=== PATIENT | male | born 1955 | race Two or more races ===

== ENCOUNTER 2016-09-30 23:41 | Emergency (ER) | payer MEDICAID, OTHER ==
[~2016-09-30] VITALS: Ht 162.6 cm; Wt 77.1 kg
[2016-10-01 00:02] VITALS: BP 129/75
== END 2016-10-01 07:48 | disposition left against medical advice (07) ==
LOC: ER 23:41
DX: R10.9 Unspecified abdominal pain (principal); Z53.21 Procedure and treatment not carried out due to patient leaving prior to being seen by health care provider

== ENCOUNTER 2016-10-17 19:32 | Emergency (ER) | payer MEDICAID ==
[~2016-10-17] VITALS: Ht 172.7 cm; Wt 63.5 kg
[2016-10-18 05:45] VITALS: BP 110/69
== END 2016-10-18 06:05 | disposition home or self-care (01) ==
LOC: EDBD 19:32 → ER 19:40
DX: K42.9 Umbilical hernia without obstruction or gangrene (principal); K80.20 Calculus of gallbladder without cholecystitis without obstruction
CPT/HCPCS: 74176

== ENCOUNTER 2016-11-12 18:51 | Emergency (ER) | payer MEDICAID ==
[~2016-11-12] VITALS: Ht 165.1 cm; Wt 68.0 kg
[2016-11-12 20:32] LABS: Basophils # (auto) 0.1 uL; Basophils % (auto) 1.2 % (0.0-2.0); DEFINITIVE VIEW TRANSMISSION; Eosinophils # (auto) 0.1 uL; Eosinophils % (auto) 2.1 % (0.0-7.0); Hematocrit 27.3 % (41.0-53.0); Hemoglobin 8.9 g/dL (13.5-17.5); Mean Corpuscular Hemoglobin 23.3 pg (28.0-32.0); Mean Corpuscular Hgb Conc. 32.4 g/dL (32.0-36.0); Mean Corpuscular Volume 71.8 fL (80.0-100.0); Monocytes # (auto) 0.3 uL; Monocytes % (auto) 7.1 % (0.0-12.0); Neutrophils % (auto) 67.6 % (37.0-80.0); Platelet Count (auto) 184 10^3/uL (140-450); White Blood Cell 4.4 10^3/uL (4.4-10.8)
[2016-11-12 20:54] LABS: Red Cell Distribution Width 20.5 % (11.6-16.0)
[2016-11-12 20:56] LABS: Albumin 3.4 g/dL (3.4-5.0); Calcium 7.7 mg/dL (8.5-10.1); Magnesium 2.2 mg/dL (1.6-2.6)
[2016-11-12 20:59] LABS: Bilirubin, Total 0.6 mg/dL (0.2-1.0); Total Protein 7.8 g/dL (6.4-8.2)
[2016-11-12 21:07] LABS: Ovalocytes FEW
[2016-11-12 21:08] LABS: Hypochromia Moderate
[2016-11-12 21:09] LABS: Anisocytosis Moderate
[2016-11-12 21:12] LABS: Large Platelets FEW; Platelet Estimate Adequa
[2016-11-12 23:33] LABS: Urine Bilirubin Negative (Negative); Urine Color Yellow (Yellow); Urine Glucose Normal (Normal); Urine Ketone Negative (Negative); Urine Mucus FEW (None Seen); Urine Nitrite Negative (Negative); Urine RBC <1 /hpf (0 - 3); Urine Urobilinogen Normal (Negative)
[2016-11-12 23:37] LABS: Urine Blood 1+ /uL (Negative)
[2016-11-13] MEDS ORDERED: ONDANSETRON HCL 4 MG/2 ML VIAL IV ONE (00:30)
[2016-11-13] MEDS ORDERED: MORPHINE SULFATE 4 MG/ML SYRG IV ONE (00:30)
[2016-11-13 01:47] VITALS: BP 115/67
== END 2016-11-13 01:57 | disposition home or self-care (01) ==
LOC: ER 18:56
DX: K42.9 Umbilical hernia without obstruction or gangrene (principal); K80.20 Calculus of gallbladder without cholecystitis without obstruction; Z59.0 Homelessness
CPT/HCPCS: 36415; 74176; 80053; 81001; 82150; 83690; 83735; 85025; 96374; 96375; 99285; J2270; J2405

== ENCOUNTER 2016-12-12 20:10 | Emergency (ER) | payer MEDICAID ==
[~2016-12-12] VITALS: Ht 167.6 cm; Wt 63.5 kg
[2016-12-13 00:46] LABS: Basophils # (auto) 0 uL; DEFINITIVE VIEW TRANSMISSION; Eosinophils # (auto) 0.1 uL; Eosinophils % (auto) 3.7 % (0.0-7.0); Hematocrit 26.3 % (41.0-53.0); Hemoglobin 8.4 g/dL (13.5-17.5); Lymphocytes % (auto) 31.3 % (10.0-50.0); Mean Corpuscular Hemoglobin 23.2 pg (28.0-32.0); Mean Corpuscular Volume 72.6 fL (80.0-100.0); Monocytes # (auto) 0.3 uL; Monocytes % (auto) 8.3 % (0.0-12.0); Neutrophils # (auto) 1.8 uL; Neutrophils % (auto) 55.7 % (37.0-80.0); Platelet Count (auto) 142 10^3/uL (140-450); White Blood Cell 3.2 10^3/uL (4.4-10.8)
[2016-12-13 03:04] VITALS: BP 108/68
[2016-12-13 03:13] LABS: Albumin 3.3 g/dL (3.4-5.0); BUN/Creatinine Ratio 13.5; Bilirubin, Total 0.5 mg/dL (0.2-1.0); Calcium 8.1 mg/dL (8.5-10.1); Potassium 3.7 mmol/L (3.5-5.1); Total Protein 7.4 g/dL (6.4-8.2)
[2016-12-13 03:52] LABS: INR 1.13 (0.9-1.15); Partial Thromboplastin Time 26.5 sec (22.64-33.71); Prothrombin Time 12.2 sec (9.37-12.3)
[2016-12-13 05:06] LABS: Red Cell Distribution Width 20.5 % (11.6-16.0)
[2016-12-13 06:04] LABS: Platelet Estimate Adequate
[2016-12-13 06:06] LABS: Anisocytosis Moderate; Hypochromia Moderate
[2016-12-13 06:07] LABS: Ovalocytes FEW
== END 2016-12-13 03:45 | disposition home or self-care (01) ==
LOC: EDBD 20:10 → ER 20:22
DX: K42.9 Umbilical hernia without obstruction or gangrene (principal); K74.60 Unspecified cirrhosis of liver
CPT/HCPCS: 36415; 74176; 80053; 82150; 83690; 85025; 85610; 85730

== ENCOUNTER 2017-03-02 21:53 | Observation (INO) | payer MEDICAID ==
[~2017-03-02] VITALS: Ht 175.3 cm; Wt 74.8 kg
[~2017-03-02 21:53] MED LIST: FAMO-12 PO; FOLI1TAB6 PO
[2017-03-03] MEDS ORDERED: THIAMINE HCL 100 MG/ML 2ML VIAL IV ONE (05:15)
[2017-03-03] MEDS ORDERED: SODIUM CHLORIDE 0.9% 1,000 ML IV ONE ×2 (05:15→07:15)
[2017-03-03 05:54] LABS: Basophils # (auto) 0 uL; CONDITION Y; DEFINITIVE SEE PRINTOUT; Eosinophils # (auto) 0.1 uL; Eosinophils % (auto) 2.3 % (0.0-7.0); Hematocrit 27.4 % (41.0-53.0); Lymphocytes # (auto) 1.1 uL; Lymphocytes % (auto) 32.7 % (10.0-50.0); Mean Corpuscular Hemoglobin 24.5 pg (28.0-32.0); Mean Corpuscular Hgb Conc. 32.9 g/dL (32.0-36.0); Mean Corpuscular Volume 74.5 fL (80.0-100.0); Monocytes # (auto) 0.3 uL; Monocytes % (auto) 8.2 % (0.0-12.0); Neutrophils # (auto) 1.8 uL; Neutrophils % (auto) 55.8 % (37.0-80.0); Platelet Count (auto) 134 10^3/uL (140-450); White Blood Cell 3.3 10^3/uL (4.4-10.8)
[2017-03-03 05:56] LABS: Red Cell Distribution Width 22.1 % (11.6-16.0)
[2017-03-03 06:08] LABS: Urine Bilirubin Negative (Negative); Urine Blood TRACE /uL (Negative); Urine Color Yellow (Yellow); Urine Glucose Normal (Normal); Urine Ketone Negative (Negative); Urine Nitrite Negative (Negative); Urine RBC 1 /hpf (0 - 3); Urine Urobilinogen Normal (Negative)
[2017-03-03 06:21] LABS: Salicylate < 1.7 mg/dL (2.8-20.0)
[2017-03-03 06:28] LABS: Acetaminophen < 2.0 ug/mL (10-30)
[2017-03-03 06:31] LABS: Albumin 3.2 g/dL (3.4-5.0); BUN/Creatinine Ratio 10.9; Bilirubin, Total 0.5 mg/dL (0.2-1.0); Calcium 7.7 mg/dL (8.5-10.1); Magnesium 2.1 mg/dL (1.6-2.6); Potassium 3.4 mmol/L (3.5-5.1); Total Protein 7.3 g/dL (6.4-8.2)
[2017-03-03 06:46] LABS: Anisocytosis Slight; Ovalocytes FEW; Platelet Estimate Decreased
[2017-03-03 06:47] LABS: Hypochromia Slight; Microcytosis Moderate
[2017-03-03 07:34] VITALS: BP 117/68
== END 2017-03-03 09:34 | disposition home or self-care (01) | DRG 775 ==
LOC: ER 21:59 → OVERFLOW 22:00 → ER 03-03 09:34
PROVIDERS: ADMIT Emergency Medicine; ATTEND Emergency Medicine
DX: F10.10 Alcohol abuse, uncomplicated (principal); K74.60 Unspecified cirrhosis of liver
CPT/HCPCS: 36415; 80053; 80307; 80320; 80329; 81001; 83735; 85025; 96361; 96374; 99285; G0378; J3411; J7030

== ENCOUNTER 2017-12-25 19:19 | Inpatient (IN) | payer MEDICAID ==
[~2017-12-25] VITALS: Ht 167.6 cm; Wt 65.8 kg
[2017-12-25 20:08] LABS: Basophils # (auto) 0.1 uL; Eosinophils # (auto) 0.1 uL; Hemoglobin 11.1 g/dL (13.5-17.5); Monocytes # (auto) 0.6 uL; Monocytes % (auto) 8.4 % (0.0-12.0); Neutrophils # (auto) 4.7 uL; White Blood Cell 6.8 10^3/uL (4.4-10.8)
[2017-12-25 20:13] LABS: Basophils % (auto) 0.9 % (0.0-2.0); Eosinophils % (auto) 1.6 % (0.0-7.0); Hematocrit 32.8 % (41.0-53.0); Lymphocytes # (auto) 1.3 uL; Lymphocytes % (auto) 19.3 % (10.0-50.0); Mean Corpuscular Hemoglobin 26.1 pg (28.0-32.0); Mean Corpuscular Hgb Conc. 33.7 g/dL (32.0-36.0); Mean Corpuscular Volume 77.4 fL (80.0-100.0); Neutrophils % (auto) 69.8 % (37.0-80.0); Nucleated Red Blood Cells % 0.2 %; Platelet Count (auto) 189 10^3/uL (140-450); Red Blood Cells 4.24 10^6/uL (4.5-5.90); Red Cell Distribution Width 18.4 % (11.8-14.3)
[2017-12-25 20:27] LABS: INR 1.06 (0.9-1.15); Partial Thromboplastin Time 27.8 sec (22.64-33.71); Prothrombin Time 11.6 sec (9.37-12.3)
[2017-12-25 20:28] LABS: Albumin 2.7 g/dL (3.4-5.0); BUN/Creatinine Ratio 6.9; Calcium 7.4 mg/dL (8.5-10.1); Potassium 3.2 mmol/L (3.5-5.1); Total Protein 6.9 g/dL (6.4-8.2)
[2017-12-25] MEDS ORDERED: SODIUM CHLORIDE 0.9% 1,000 ML IV ONE (20:58)
[2017-12-26] VITALS (7 sets, daily range): BP systolic 96–117; BP diastolic 58–75
[2017-12-26] MEDS ORDERED: MORPHINE SULFATE 4 MG/ML SYR/VIAL IV PRN (03:00)
[2017-12-26] MEDS ORDERED: FUROSEMIDE 20 MG/2 ML VIAL IV ONE (03:00)
[2017-12-26] MEDS ORDERED: ONDANSETRON HCL 4 MG/2 ML VIAL IV PRN (03:00)
[2017-12-26] MEDS ORDERED: POTASSIUM CHL 20 Meq TABLET PO ONE (03:00)
[2017-12-26] MEDS ORDERED: chlordiazePOXIDE HCL 25 MG CAP PO PRN (03:00)
[2017-12-26] MEDS ORDERED: LORazepam 2MG/ML-1ML VIAL IV PRN (03:00)
[2017-12-26 06:49] LABS: Basophils # (auto) 0 uL; Hemoglobin 10.9 g/dL (13.5-17.5); Mean Corpuscular Volume 77.5 fL (80.0-100.0); Monocytes # (auto) 0.3 uL; Platelet Count (auto) 146 10^3/uL (140-450)
[2017-12-26 06:53] LABS: Basophils % (auto) 0.7 % (0.0-2.0); Eosinophils # (auto) 0.1 uL; Eosinophils % (auto) 1.6 % (0.0-7.0); Lymphocytes # (auto) 0.7 uL; Lymphocytes % (auto) 18.6 % (10.0-50.0); Mean Corpuscular Hemoglobin 26.4 pg (28.0-32.0); Mean Corpuscular Hgb Conc. 34.1 g/dL (32.0-36.0); Monocytes % (auto) 8.7 % (0.0-12.0); Neutrophils # (auto) 2.7 uL; Neutrophils % (auto) 70.4 % (37.0-80.0); Nucleated Red Blood Cells % 0.5 %; Red Blood Cells 4.13 10^6/uL (4.5-5.90); Red Cell Distribution Width 17.8 % (11.8-14.3); White Blood Cell 3.8 10^3/uL (4.4-10.8)
[2017-12-26 07:06] LABS: Albumin 2.5 g/dL (3.4-5.0); Calcium 7.3 mg/dL (8.5-10.1); Potassium 3.5 mmol/L (3.5-5.1)
[2017-12-26 07:09] LABS: BUN/Creatinine Ratio 8.2
[2017-12-26 07:12] LABS: Total Protein 6.3 g/dL (6.4-8.2)
[2017-12-26] MEDS: THIAMINE 100mg/ml INJ (200mg/2ml VIAL) IV SCH (10:00)
[2017-12-26] MEDS: FOLIC ACID 1 MG TAB PO SCH (10:00)
[2017-12-26] MEDS: LACTULOSE 20Gm/30ML SOLN PO SCH ×2 (10:00→21:33)
[2017-12-26] MEDS: ALBUMIN 25% 100 ML IV SCH ×2 (13:07→18:15)
[2017-12-27] MEDS: ALBUMIN 25% 100 ML IV SCH (02:46)
[2017-12-27 05:00] VITALS: BP 96/62
[2017-12-27 06:18] LABS: Basophils # (auto) 0 uL; Basophils % (auto) 0.6 % (0.0-2.0); Eosinophils # (auto) 0 uL; Hematocrit 28.3 % (41.0-53.0); Hemoglobin 9.7 g/dL (13.5-17.5); Lymphocytes # (auto) 0.5 uL; Monocytes # (auto) 0.3 uL; Neutrophils # (auto) 1.3 uL; Platelet Count (auto) 90 10^3/uL (140-450)
[2017-12-27 06:22] LABS: Eosinophils % (auto) 1.7 % (0.0-7.0); Lymphocytes % (auto) 22.9 % (10.0-50.0); Mean Corpuscular Hemoglobin 26.7 pg (28.0-32.0); Mean Corpuscular Hgb Conc. 34.3 g/dL (32.0-36.0); Monocytes % (auto) 12.8 % (0.0-12.0); Red Blood Cells 3.62 10^6/uL (4.5-5.90); Red Cell Distribution Width 18.7 % (11.8-14.3); White Blood Cell 2.1 10^3/uL (4.4-10.8)
[2017-12-27 06:42] LABS: BUN/Creatinine Ratio 16.4; Bilirubin, Direct 0.5 mg/dL (0-0.2); Bilirubin, Total 1.6 mg/dL (0.2-1.0); Calcium 7.6 mg/dL (8.5-10.1); Magnesium 1.8 mg/dL (1.6-2.6); Potassium 3.5 mmol/L (3.5-5.1); Total Protein 5.5 g/dL (6.4-8.2)
[2017-12-27 09:00] VITALS: BP 92/51
[2017-12-27] MEDS: FOLIC ACID 1 MG TAB PO SCH (09:35)
[2017-12-27] MEDS: THIAMINE 100mg/ml INJ (200mg/2ml VIAL) IV SCH (09:35)
[2017-12-27] MEDS: LACTULOSE 20Gm/30ML SOLN PO SCH (09:35)
[2017-12-27 13:00] VITALS: BP 99/64
[2017-12-27 15:29] VITALS: BP 107/65
== END 2017-12-27 16:30 | disposition home or self-care (01) | DRG 280 ==
LOC: ER 19:19 → TELE 19:20 → TELE-WESTW 12-26 01:14 → ER 12-26 01:25 → TELE-WESTW 12-26 01:30
PROVIDERS: ADMIT Nurse Practitioner Family; ATTEND Internal Medicine
PROC: 0W9G3ZZ Drainage of Peritoneal Cavity, Percutaneous Approach (ICD-10-PCS; principal; 2017-12-26)
DX: K70.31 Alcoholic cirrhosis of liver with ascites (principal); D61.818 Other pancytopenia; K76.6 Portal hypertension; E44.0 Moderate protein-calorie malnutrition; E87.1 Hypo-osmolality and hyponatremia; E83.51 Hypocalcemia; R79.89 Other specified abnormal findings of blood chemistry; E87.6 Hypokalemia; K80.20 Calculus of gallbladder without cholecystitis without obstruction; F10.10 Alcohol abuse, uncomplicated; I25.10 Atherosclerotic heart disease of native coronary artery without angina pectoris; Z79.899 Other long term (current) drug therapy; Z68.23 Body mass index [BMI] 23.0-23.9, adult
CPT/HCPCS: 10022; 36415; 74176; 76705; 76942; 80048; 80053; 80076; 82105; 82140; 82150; 82378; 83690; 83735; 83880; 84484; 85025; 85610; 85730; 87081; 93005; C1729; P9047

== ENCOUNTER 2017-12-28 20:50 | Emergency (ER) | payer MEDICAID ==
[~2017-12-28] VITALS: Ht 182.9 cm; Wt 81.6 kg
[2017-12-28 21:51] LABS: Basophils # (auto) 0 uL; Eosinophils # (auto) 0.1 uL; Hemoglobin 10.6 g/dL (13.5-17.5); Mean Corpuscular Hemoglobin 26.6 pg (28.0-32.0); Monocytes # (auto) 0.3 uL; Monocytes % (auto) 7.2 % (0.0-12.0); Nucleated Red Blood Cells % 0.1 %
[2017-12-28 21:53] LABS: Basophils % (auto) 0.5 % (0.0-2.0); Eosinophils % (auto) 1.7 % (0.0-7.0); Hematocrit 31.8 % (41.0-53.0); Lymphocytes % (auto) 24.3 % (10.0-50.0); Mean Corpuscular Hgb Conc. 33.4 g/dL (32.0-36.0); Mean Corpuscular Volume 79.5 fL (80.0-100.0); Neutrophils # (auto) 2.9 uL; Neutrophils % (auto) 66.3 % (37.0-80.0); Red Cell Distribution Width 19.1 % (11.8-14.3); White Blood Cell 4.3 10^3/uL (4.4-10.8)
[2017-12-28 21:59] LABS: Albumin 2.7 g/dL (3.4-5.0); Calcium 7.4 mg/dL (8.5-10.1); Potassium 3.5 mmol/L (3.5-5.1)
[2017-12-28 22:02] LABS: Bilirubin, Total 0.6 mg/dL (0.2-1.0); Total Protein 6.2 g/dL (6.4-8.2)
[2017-12-28 22:04] LABS: Platelet Count (auto) 115 10^3/uL (140-450)
[2017-12-28] MEDS ORDERED: THIAMINE INJ 100 MG, MULTIPLE VITAMIN 10 ML, FOLIC ACID 1 MG, MAGNESIUM SULF SDV 50% 8 ... IV STA ×5 (23:00)
[2017-12-28] MEDS ORDERED: THIAMINE 100mg/ml INJ (200mg/2ml VIAL) ONE (23:58)
[2017-12-29 03:20] VITALS: BP 98/55
== END 2017-12-29 03:33 | disposition home or self-care (01) ==
LOC: EDBD 20:50 → ER 20:58
DX: K80.20 Calculus of gallbladder without cholecystitis without obstruction (principal); G92 Toxic encephalopathy; K42.9 Umbilical hernia without obstruction or gangrene; K70.31 Alcoholic cirrhosis of liver with ascites; F10.129 Alcohol abuse with intoxication, unspecified; Z59.0 Homelessness; Z79.899 Other long term (current) drug therapy
CPT/HCPCS: 36415; 74176; 80053; 80320; 82140; 82150; 83690; 85025; 93005; 96365; 96366; 99285; J3411; J3475; J7030

== ENCOUNTER 2018-01-30 22:23 | Emergency (ER) | payer MEDICAID ==
[~2018-01-30] VITALS: Ht 167.6 cm; Wt 59.0 kg
[2018-01-31 00:34] LABS: Basophils # (auto) 0 uL; Basophils % (auto) 1.2 % (0.0-2.0); Eosinophils # (auto) 0.1 uL; Eosinophils % (auto) 2.6 % (0.0-7.0); Hematocrit 30.4 % (41.0-53.0); Hemoglobin 10.4 g/dL (13.5-17.5); Lymphocytes # (auto) 0.9 uL; Lymphocytes % (auto) 24.8 % (10.0-50.0); Mean Corpuscular Hemoglobin 27.2 pg (28.0-32.0); Mean Corpuscular Hgb Conc. 34.3 g/dL (32.0-36.0); Mean Corpuscular Volume 79.2 fL (80.0-100.0); Monocytes # (auto) 0.3 uL; Monocytes % (auto) 9.3 % (0.0-12.0); Neutrophils # (auto) 2.3 uL; Neutrophils % (auto) 62.1 % (37.0-80.0); Nucleated Red Blood Cells % 0.1 %; Platelet Count (auto) 123 10^3/uL (140-450); Red Blood Cells 3.83 10^6/uL (4.5-5.90); Red Cell Distribution Width 21.1 % (11.8-14.3); White Blood Cell 3.7 10^3/uL (4.4-10.8)
[2018-01-31 00:49] LABS: Albumin 2.6 g/dL (3.4-5.0); Calcium 7.2 mg/dL (8.5-10.1); Magnesium 1.9 mg/dL (1.6-2.6)
[2018-01-31 00:52] LABS: Bilirubin, Total 1.2 mg/dL (0.2-1.0); Total Protein 6.6 g/dL (6.4-8.2)
[2018-01-31 02:27] LABS: Urine Bacteria NONE SEEN /hpf (None Seen); Urine Blood Negative /uL (Negative); Urine Specific Gravity 1.002 (1.001-1.035); Urine WBC <1 /hpf (0 - 3)
[2018-01-31] MEDS ORDERED: SODIUM CHLORIDE 0.9% 1,000 ML IV ONE (07:45)
[2018-01-31 09:38] VITALS: BP 115/59
== END 2018-01-31 09:30 | disposition home or self-care (01) ==
LOC: EDBD 22:23 → ER 22:33
DX: F10.10 Alcohol abuse, uncomplicated (principal)
CPT/HCPCS: 36415; 80053; 81001; 83735; 85025; 99285; J7030

== ENCOUNTER 2018-12-30 16:09 | Emergency (ER) | payer MEDICAID ==
[~2018-12-30] VITALS: Ht 172.7 cm; Wt 83.5 kg
[~2018-12-30 16:09] MED LIST changes: +FAM20T PO; -FAMO-12 PO; +SPIR25TA88 PO; +THIA100T10 PO
[2018-12-30 18:06] LABS: Basophils # (auto) 0 uL; Basophils % (auto) 0.5 % (0.0-2.0); Eosinophils # (auto) 0.1 uL; Eosinophils % (auto) 1.2 % (0.0-7.0); Hematocrit 31.5 % (41.0-53.0); Hemoglobin 10.6 g/dL (13.5-17.5); Lymphocytes # (auto) 0.5 uL; Lymphocytes % (auto) 12.1 % (10.0-50.0); Mean Corpuscular Hemoglobin 28.7 pg (28.0-32.0); Mean Corpuscular Hgb Conc. 33.6 g/dL (32.0-36.0); Mean Corpuscular Volume 85.4 fL (80.0-100.0); Monocytes # (auto) 0.4 uL; Monocytes % (auto) 9.1 % (0.0-12.0); Neutrophils # (auto) 3.5 uL; Neutrophils % (auto) 77.1 % (37.0-80.0); Platelet Count (auto) 168 10^3/uL (140-450); Red Blood Cells 3.69 10^6/uL (4.5-5.90); Red Cell Distribution Width 17.9 % (11.8-14.3); White Blood Cell 4.5 10^3/uL (4.4-10.8)
[2018-12-30 18:10] LABS: Albumin 2.9 g/dL (3.4-5.0); BUN/Creatinine Ratio 12.7; Calcium 8.1 mg/dL (8.5-10.1)
[2018-12-30 18:12] LABS: Bilirubin, Total 1.8 mg/dL (0.2-1.0)
[2018-12-30 18:58] LABS: INR 1.06 (0.9-1.15); Partial Thromboplastin Time 27.3 sec (23.64-32.05)
[2018-12-30] MEDS ORDERED: ALBUMIN 25% 100 ML IV ONE (22:30)
[2018-12-30] MEDS ORDERED: ALBUMIN 5% 50 ML IV ONE (22:45)
[2018-12-30 23:29] VITALS: BP 103/61
== END 2018-12-31 00:41 | disposition home or self-care (01) ==
LOC: ER 16:13
DX: R18.8 Other ascites (principal); K74.60 Unspecified cirrhosis of liver; E43 Unspecified severe protein-calorie malnutrition; D64.9 Anemia, unspecified; E87.1 Hypo-osmolality and hyponatremia; Z68.28 Body mass index [BMI] 28.0-28.9, adult
CPT/HCPCS: 36415; 49083; 80053; 85025; 85610; 85730; 87205; 89051; 96365; 99285; P9041; P9047; 10022

== ENCOUNTER 2019-04-16 21:00 | Inpatient (IN) | payer MEDICAID ==
[~2019-04-16] VITALS: Ht 167.6 cm; Wt 62.6 kg
[2019-04-16 22:32] LABS: Basophils # (auto) 0 uL; Basophils % (auto) 0.9 % (0.0-2.0); Eosinophils # (auto) 0.1 uL; Eosinophils % (auto) 2.2 % (0.0-7.0); Hematocrit 28.4 % (41.0-53.0); Lymphocytes # (auto) 0.4 uL; Lymphocytes % (auto) 13.3 % (10.0-50.0); Mean Corpuscular Hemoglobin 29.6 pg (28.0-32.0); Mean Corpuscular Hgb Conc. 35.1 g/dL (32.0-36.0); Mean Corpuscular Volume 84.2 fL (80.0-100.0); Monocytes # (auto) 0.3 uL; Monocytes % (auto) 10.2 % (0.0-12.0); Neutrophils # (auto) 2.3 uL; Neutrophils % (auto) 73.4 % (37.0-80.0); Nucleated Red Blood Cells % 0.1 %; Platelet Count (auto) 157 10^3/uL (140-450); Red Blood Cells 3.37 10^6/uL (4.5-5.90); Red Cell Distribution Width 17.3 % (11.8-14.3); White Blood Cell 3.2 10^3/uL (4.4-10.8)
[2019-04-16 22:46] LABS: Albumin 2.7 g/dL (3.4-5.0); Amylase 61 U/L (25-115); Anion Gap 11 (5-15); Blood Urea Nitrogen 18 mg/dL (7-18); Calcium 7.6 mg/dL (8.5-10.1); Carbon Dioxide 21 mmol/L (21-32); Chloride 93 mmol/L (98-107); Glucose 85 mg/dL (74-106); Lipase 143 U/L (73-393); Magnesium 1.9 mg/dL (1.6-2.6); Potassium 3.7 mmol/L (3.5-5.1); Sodium 125 mmol/L (136-145)
[2019-04-16 22:48] LABS: BUN/Creatinine Ratio 22.5; GFR African American 126 mL/min; GFR Non-African American 104 mL/min
[2019-04-16] MEDS ORDERED: HETASTARCH 500 ML IV ONE (23:00)
[2019-04-16 23:05] LABS: Alanine Aminotransferase 21 U/L (16-61); Alkaline Phosphatase 83 U/L (45-117); Aspartate Aminotransferase 35 U/L (15-37); Bilirubin, Total 1.6 mg/dL (0.2-1.0); Total Protein 6.4 g/dL (6.4-8.2)
[2019-04-16] MEDS ORDERED: LACTULOSE 20Gm/30ML SOLN PO ONE (23:30)
[2019-04-16] MEDS ORDERED: SPIRONOLACTONE 25 MG TAB PO ONE (23:45)
[2019-04-17] MEDS ORDERED: SODIUM CHL 3% 500 ML IV ONE (01:00)
[2019-04-17] MEDS ORDERED: ONDANSETRON HCL 4 MG/2 ML VIAL IV PRN (03:15)
[2019-04-17] MEDS ORDERED: TEMAZEPAM 15 MG CAP PO PRN (03:15)
[2019-04-17] MEDS ORDERED: NITROGLYCERIN 0.4 MG SL TAB SL PRN (03:15)
[2019-04-17] MEDS ORDERED: MORPHINE SULF INJ 2 MG/ML SYRINGE 1ML IV PRN (03:15)
[2019-04-17 03:30] LABS: Urine Bacteria NONE SEEN /hpf (None Seen); Urine Blood 2+ /uL (Negative); Urine Specific Gravity 1.018 (1.001-1.035); Urine WBC 1 /hpf (0 - 3)
--- NOTE | 2019-04-17 05:00 | NUR ---
MS admit from ER LYNN,KEN admitted to MS after SBAR received, from ED RN Samina. Patient oriented to ALF CHOI,primary RN, unit, room, bed, and unit policies regarding patient care and visiting hours. Patient weighed by bedscale and encouraged to call if they need something. All questions and concerns addressed, patient verbalized understanding.
--- NOTE | 2019-04-17 05:20 | NUR ---
WOUND NOTED WOUND NOTED POSTERIOR NECK. WOUND PHOTO TAKEN AND DOCUMENTED. WOUND CLEANSED WITH NORMAL SALINE AND NON ADHERENT OPTIFOAM APPLIED. NO DRAINAGE NOTED.
[2019-04-17] MEDS: SPIRONOLACTONE 25 MG TAB PO SCH ×2 (05:34→18:16)
[2019-04-17 06:06] VITALS: BP 117/77
--- NOTE | 2019-04-17 07:15 | NUR ---
ENDORSED CARE TO DONNY MYERS
--- NOTE | 2019-04-17 07:30 | NUR ---
Opening Shift Note Assumed care of patient, awake and alert. No S/S of distress/SOB or pain. Instructed on POC and to call for assist PRN, will continue to monitor for changes Q1hr and PRN.
[2019-04-17 08:35] VITALS: BP 119/76
[2019-04-17] MEDS: LACTULOSE 20Gm/30ML SOLN PO SCH ×2 (10:00→10:12)
[2019-04-17 10:09] LABS: INR 1.05 (0.9-1.15)
[2019-04-17] MEDS: THIAMINE HCL 100 MG TAB PO SCH (10:12)
[2019-04-17] MEDS: FAMOTIDINE 20 MG TAB PO SCH ×2 (10:13→22:13)
[2019-04-17] MEDS: FOLIC ACID 1 MG TAB PO SCH (10:14)
--- NOTE | 2019-04-17 11:30 | NUR ---
WOUNDCARE AT BEDSIDE
--- NOTE | 2019-04-17 11:52 | NUR ---
WOUND CARE NOTE: Wound care in to see patient per wound care request regarding " posterior neck wound" that are noted present on admission. Bedside nurse took photograph of patient's wound upon admission for reference. Patient is 63 y/o male with admitting diagnosis of Abdominal Distention secondary to ascites. Patient with history of Liver Cirrhosis and COPD. Patient is resting in bed in Rm. 216B. Patient is awake,alert and oriented. He's in no stated pain at this time. Patient is ambulatory and self turn and reposition. His Bao score is 19. Noted patient's distal posterior neck has 2.5x1 cm reddened area with open lesion at center measuring 0.7x0.5cm no measurable depth. Wound with yellow slough, luis wound is bright red, scant drainage noted, no odor noted. Patient denies any trauma to site and states that he just noted a pimple like lesion about a week ago when it "popped" and drain "brown stuff". Cleanse wound with NS, patted dry with gauze, applied Thera honey gel and covered with Opti foam gentle dressing. Patient tolerated well, no other wound noted. Nursing to continue dressing change per MD order, No further wound care monitoring needed at this time. RECOMMENDATION: EOD/PRN dressing change to posterior neck wound per MD order, dietary consult due to presence of wound. Addendum: 04/17/19 at 1456 by Gianna Cruz RN Amended: Links added.
[2019-04-17 12:19] VITALS: BP 106/72
[2019-04-17] MEDS: rifAXIMin 550 MG TAB PO SCH ×2 (12:41→22:13)
[2019-04-17 12:53] LABS: Hepatitis B Surface Antibody Negative
--- NOTE | 2019-04-17 13:05 | NUR ---
PT IN ULTRASOUND FOR A PARACENTESIS. CONSENTS VERIFIED. TIME OUT CALLED AND PROCEDURE STARTED BY DR FRANKS. VS 98-63-98-100%. 1320: 9018-61-01-100% 1335: 92/30-41-67-100% 1350: 90/84-15-84-100% 1355: FINISHED WITH PROCEDURE. 12,00 ML OF SEB FLUID REMOVED. PT TOLERATED PROCEDURE WELL.. SPECIMEN NOT SENT TO LAB. BACK TO ROOM IN GOOD CONDITION.
[2019-04-17 13:31] LABS: Hepatitis A Total Antibody Positive
--- NOTE | 2019-04-17 15:30 | NUR ---
PATIENT COMPLAINING OF SOME DISCOMFORT.
--- NOTE | 2019-04-17 16:00 | NUR ---
DR CARDENAS AWARE PATIENT WOULD LIKE TO STAY AND BE DISCHARGED IN THE MORNING.
[2019-04-17 16:38] VITALS: BP 104/60
--- NOTE | 2019-04-17 18:35 | NUR ---
PATIENT DENIES ANY PAIN, IN BED, CALL LIGHT WITHIN REACH
--- NOTE | 2019-04-17 19:07 | NUR ---
REPORT GIVEN TO PIN DRAFTER RN, PATIENT IN BED, CALL LIGHT WITHIN REACH, BED IN LOWEST POSITION, PIN DRAFTER WILL ASSUME CARE.
--- NOTE | 2019-04-17 19:41 | NUR ---
RECEIVED PATIENT FROM DAY SHIFT RN. PATIENT RESTING IN BED. NO S/S OF DISTRESS NOTED. DENIED PAIN AT THIS TIME. ABDOMEN DISTENDED. PATIENT DENIED DIZZINESS AND LIGHT HEADACHE AT THIS TIME. POC INSTRUCTED AND ENCOURAGED PATIENT TO CALL FOR PRINTER MACHINE IF NEEDED. BED IN LOWEST POSITION WITH SIDE RAILS UP X 2. CALL KLEIN WITHIN REACH. ALARM ON. CONTINUE TO MONITOR FOR CHANGES Q1H AND PRN.
[2019-04-17 21:58] VITALS: BP 106/59
--- NOTE | 2019-04-17 22:52 | NUR ---
PATIENT WALKED TO BATHROOM AND BACK TO BED WITH STEADY GAIT. NO S/S OF DISTRESS NOTED. CONTINUE CARE.
--- NOTE | 2019-04-18 03:24 | NUR ---
PATIENT SLEEPING. NO S/S OF DISTRESS NOTED. CONTINUE TO MONITOR.
[2019-04-18 05:00] VITALS: BP 90/54
[2019-04-18] MEDS: SPIRONOLACTONE 25 MG TAB PO SCH ×2 (06:22→18:00)
[2019-04-18 06:23] VITALS: BP 97/63
--- NOTE | 2019-04-18 06:24 | NUR ---
REASSESSED BP 97/63, HR 78. CONTINUE TO MONITOR.
[2019-04-18 09:00] VITALS: BP 90/54
[2019-04-18 10:16] LABS: Basophils # (auto) 0 uL; Eosinophils # (auto) 0.1 uL; Eosinophils % (auto) 2.7 % (0.0-7.0); Hematocrit 30.8 % (41.0-53.0); Hemoglobin 10.4 g/dL (13.5-17.5); Lymphocytes # (auto) 0.4 uL; Lymphocytes % (auto) 12.7 % (10.0-50.0); Mean Corpuscular Hemoglobin 29.1 pg (28.0-32.0); Mean Corpuscular Hgb Conc. 33.7 g/dL (32.0-36.0); Mean Corpuscular Volume 86.4 fL (80.0-100.0); Monocytes # (auto) 0.2 uL; Monocytes % (auto) 8.1 % (0.0-12.0); Neutrophils # (auto) 2.1 uL; Neutrophils % (auto) 75.5 % (37.0-80.0); Nucleated Red Blood Cells % 0.4 %; Platelet Count (auto) 156 10^3/uL (140-450); Red Blood Cells 3.56 10^6/uL (4.5-5.90); Red Cell Distribution Width 17.6 % (11.8-14.3); White Blood Cell 2.8 10^3/uL (4.4-10.8)
[2019-04-18 11:25] LABS: Calcium 7.8 mg/dL (8.5-10.1); Potassium 3.6 mmol/L (3.5-5.1)
[2019-04-18 11:26] LABS: BUN/Creatinine Ratio 25.8
--- NOTE | 2019-04-18 11:30 | NUR ---
ROUNDS Dr Goodman at bedside for rounds, new orders received and followed through. Patient updated on plan of care, verbalized understanding.
[2019-04-18] MEDS: FAMOTIDINE 20 MG TAB PO SCH (11:37)
[2019-04-18] MEDS: LACTULOSE 20Gm/30ML SOLN PO SCH (11:37)
[2019-04-18] MEDS: THIAMINE HCL 100 MG TAB PO SCH (11:37)
[2019-04-18] MEDS: rifAXIMin 550 MG TAB PO SCH (11:37)
[2019-04-18] MEDS: FOLIC ACID 1 MG TAB PO SCH (11:37)
--- NOTE | 2019-04-18 11:45 | NUR ---
Attempted to contact next of kin, Ava at number listed on facesheet, per person that answered, they do not know anyone by this name. When patient asked if he knew the number to Ava, he gave me a number to Savana, his sister. MICHAEL Peace, spoke to Savana in Armenian and informed her of patients discharge, per Savana, patient lives with his daughter but she does not know her name or phone number. When patient asked again if he has another number, he verbalized he lives with a friend in [place] but they work until midnight and he does not have access to enter the residence, but verbalized they will leave a foote under the mat for him to get in tomorrow. Will notify Dr Goodman and psych social worker. Phil RN, Charge Nurse notified, verbalized understanding.
--- NOTE | 2019-04-18 12:15 | NUR ---
Spoke to Dr Goodman, in formed of reason for call, verbalized patient to be discharged today and to notify Claim Review Medical Director.
--- NOTE | 2019-04-18 12:45 | NUR ---
CARTON STAPLER Informed Erlinda Carlos Homicide Squad Commanding Officer of reason for call. Taxi voucher given for patient to be transported home.
[2019-04-18 13:00] VITALS: BP 98/62
--- NOTE | 2019-04-18 19:13 | NUR ---
Care endorsed to LUCIA Brandon, night nurse.
--- NOTE | 2019-04-18 20:15 | NUR ---
Discharge instructions PREPARED BY ZULEIMA RUBY RN. AND given as ordered. Encourage to follow up with PMD as instructed. All questions and concerns addressed. Patient verbalized understanding. Medication reconciliation form completed and copy given to patient. IV removed with catheter intact, pressure dressing applied. Patient taken to LOBBY OF MAIN ENTRANCE via wheelchair with all personal belongings, accompanied by staff. No distress noted at time of departure. PATIENT WILL WAIT IN THE LOBBY UNTIL TOMORROW WHEN THE BUS STARTS. SECURITY CALLED AND AWARE.
== END 2019-04-18 20:15 | disposition home or self-care (01) | DRG 280 ==
LOC: ER 21:04 → OVERFLOW 21:05 → CENTRAL 04-17 05:30
PROVIDERS: ADMIT Nurse Practitioner; ATTEND Internal Medicine
PROC: 0W9G30Z Drainage of Peritoneal Cavity with Drainage Device, Percutaneous Approach (ICD-10-PCS; principal; 2019-04-17)
DX: K70.31 Alcoholic cirrhosis of liver with ascites (principal); E44.0 Moderate protein-calorie malnutrition; E87.1 Hypo-osmolality and hyponatremia; D64.9 Anemia, unspecified; J44.9 Chronic obstructive pulmonary disease, unspecified; F10.10 Alcohol abuse, uncomplicated; Z79.899 Other long term (current) drug therapy; Y90.9 Presence of alcohol in blood, level not specified; Z68.22 Body mass index [BMI] 22.0-22.9, adult
CPT/HCPCS: 10022; 36415; 76705; 76942; 80048; 80053; 80320; 81001; 82140; 82150; 83690; 83735; 84295; 84484; 85025; 85610; 86704; 86706; 86708; 86803; 87340; 93005; 96361; 96365; G0378

== ENCOUNTER 2019-04-18 22:53 | Emergency (ER) | payer MEDICAID ==
[~2019-04-18] VITALS: Ht 167.6 cm; Wt 63.5 kg
[2019-04-19 10:17] VITALS: BP 96/63
== END 2019-04-19 10:18 | disposition home or self-care (01) ==
LOC: ER 22:53
DX: K70.31 Alcoholic cirrhosis of liver with ascites (principal); K42.9 Umbilical hernia without obstruction or gangrene; J44.9 Chronic obstructive pulmonary disease, unspecified; Z79.899 Other long term (current) drug therapy

== ENCOUNTER 2019-05-14 18:33 | Inpatient (IN) | payer MEDICAID ==
[~2019-05-14] VITALS: Ht 165.1 cm; Wt 65.2 kg
[2019-05-14 20:28] LABS: Urine WBC None Seen /hpf (0 - 3)
[2019-05-14] MEDS ORDERED: ONDANSETRON HCL 4 MG/2 ML VIAL IV ONE (20:45)
[2019-05-14] MEDS ORDERED: MORPHINE SULFATE 4 MG/ML SYR/VIAL IV ONE (20:45)
[2019-05-14 21:04] LABS: Urine Bacteria NONE SEEN /hpf (None Seen); Urine Blood 1+ /uL (Negative); Urine Specific Gravity 1.006 (1.001-1.035)
[2019-05-14 21:26] LABS: Basophils # (auto) 0 uL; Basophils % (auto) 1.4 % (0.0-2.0); Eosinophils # (auto) 0.1 uL; Eosinophils % (auto) 2.6 % (0.0-7.0); Hematocrit 29.8 % (41.0-53.0); Hemoglobin 10.4 g/dL (13.5-17.5); Lymphocytes # (auto) 0.4 uL; Lymphocytes % (auto) 14.2 % (10.0-50.0); Mean Corpuscular Hemoglobin 31.3 pg (28.0-32.0); Mean Corpuscular Hgb Conc. 34.8 g/dL (32.0-36.0); Mean Corpuscular Volume 89.8 fL (80.0-100.0); Monocytes # (auto) 0.3 uL; Monocytes % (auto) 10.1 % (0.0-12.0); Neutrophils % (auto) 71.7 % (37.0-80.0); Nucleated Red Blood Cells % 0.1 %; Platelet Count (auto) 119 10^3/uL (140-450); Red Blood Cells 3.32 10^6/uL (4.5-5.90); Red Cell Distribution Width 19.2 % (11.8-14.3); White Blood Cell 2.8 10^3/uL (4.4-10.8)
[2019-05-14 21:33] LABS: Alanine Aminotransferase 22 U/L (16-61); Albumin 2.5 g/dL (3.4-5.0); Amylase 70 U/L (25-115); Anion Gap 10 (5-15); Aspartate Aminotransferase 32 U/L (15-37); Blood Urea Nitrogen 13 mg/dL (7-18); Calcium 7.7 mg/dL (8.5-10.1); Carbon Dioxide 20 mmol/L (21-32); Chloride 89 mmol/L (98-107); Glucose 81 mg/dL (74-106); Lipase 161 U/L (73-393); Magnesium 1.8 mg/dL (1.6-2.6); Potassium 4.6 mmol/L (3.5-5.1)
[2019-05-14 21:34] LABS: INR 1.01 (0.9-1.15)
[2019-05-14 21:35] LABS: Lactic Acid w/Reflex 2.5 mmol/L (0.4-2.0)
[2019-05-14 21:36] LABS: Alkaline Phosphatase 85 U/L (45-117); Bilirubin, Total 1.2 mg/dL (0.2-1.0); GFR African American 166 mL/min; GFR Non-African American 137 mL/min; Total Protein 6.4 g/dL (6.4-8.2)
[2019-05-14 21:41] LABS: Sodium 119 mmol/L (136-145)
[2019-05-14 21:42] LABS: BUN/Creatinine Ratio 20.6
[2019-05-14] MEDS ORDERED: SODIUM CHL 3% 500 ML IV ONE (22:15)
[2019-05-14] MEDS ORDERED: VANCOMYCIN 1GM/250ML 250 ML IV ONE (22:15)
[2019-05-14] MEDS ORDERED: PIPERACILLIN-TAZOB 3.375GM 100 ML IV ONE (22:15)
[2019-05-14] MEDS ORDERED: NITROGLYCERIN 0.4 MG SL TAB SL PRN (23:45)
[2019-05-14] MEDS ORDERED: traMADol HCL 50 MG TAB PO PRN (23:45)
[2019-05-14] MEDS ORDERED: FOLIC ACID 1 MG in D5W 5% 50 ML INJ ONE (23:45)
[2019-05-14] MEDS ORDERED: cefTRIAXone 1GM/50ML D5W 50 ML IV ONE (23:45)
[2019-05-14] MEDS ORDERED: FAMOTIDINE (10MG/ML) 2ML VL IV ONE (23:45)
[2019-05-14] MEDS ORDERED: THIAMINE 100mg/ml INJ (200mg/2ml VIAL) IV ONE (23:45)
[2019-05-14] MEDS ORDERED: LORazepam 0.5 MG TAB PO PRN (23:45)
[2019-05-14] MEDS ORDERED: ONDANSETRON HCL 4 MG/2 ML VIAL IV PRN (23:45)
[2019-05-14] MEDS ORDERED: MORPHINE SULF INJ 2 MG/ML SYRINGE 1ML IV PRN ×2 (23:45)
[2019-05-15] VITALS (8 sets, daily range): BP systolic 83–144; BP diastolic 46–104
--- NOTE | 2019-05-15 00:24 | NUR ---
Telemetry admit from ER KEN BAILEY admitted to Telemetry unit. Patient oriented to ESTELA PUCKETT, primary RN, unit, room, bed, and unit policies regarding patient care and visiting hours. Patient now on continuous telemetry monitoring, tele box #66 and telemetry reading on arrival to unit is SB 57. Patient weighed by bedscale and encouraged to call if they need something. Bed locked in lowest position, side rails upx2, call light within reach. All questions and concerns addressed, patient verbalized understanding.
[2019-05-15 06:17] LABS: Basophils # (auto) 0 uL; Basophils % (auto) 0.9 % (0.0-2.0); Eosinophils # (auto) 0.1 uL; Eosinophils % (auto) 3.3 % (0.0-7.0); Hematocrit 28.4 % (41.0-53.0); Hemoglobin 10.2 g/dL (13.5-17.5); Lymphocytes # (auto) 0.4 uL; Mean Corpuscular Hemoglobin 32.1 pg (28.0-32.0); Mean Corpuscular Hgb Conc. 35.8 g/dL (32.0-36.0); Mean Corpuscular Volume 89.7 fL (80.0-100.0); Monocytes # (auto) 0.3 uL; Monocytes % (auto) 12.1 % (0.0-12.0); Neutrophils # (auto) 1.7 uL; Neutrophils % (auto) 68.7 % (37.0-80.0); Nucleated Red Blood Cells % 0.2 %; Platelet Count (auto) 107 10^3/uL (140-450); Red Blood Cells 3.17 10^6/uL (4.5-5.90); Red Cell Distribution Width 19.2 % (11.8-14.3); White Blood Cell 2.5 10^3/uL (4.4-10.8)
[2019-05-15 06:26] LABS: Calcium 7.6 mg/dL (8.5-10.1); Potassium 4.9 mmol/L (3.5-5.1)
--- NOTE | 2019-05-15 06:58 | NUR ---
IV insertion IV access obtained, via clean sterile technique by inserting 22 gauge catheter at right forearm after 3 attempt(s). IV secured properly. No trauma to site. Patient tolerated well.
--- NOTE | 2019-05-15 08:00 | NUR ---
Opening Shift Note Assumed care of patient, awake and alert. No S/S of distress/SOB or pain. Abdomen very firm and distended. Pt is to get a paracentesis today, unknown what time. Instructed on POC and to call for assist PRN, will continue to monitor for changes Q1hr and PRN.
--- NOTE | 2019-05-15 08:07 | NUR ---
Folic acid There was a Folic Acid scheduled around midnight. Unknown if this was given. director of collections and archives RN reported it was not. This nurse wrote it as a duplicate order as Folic Acid is scheduled for 1000 daily. This dose will be given by this nurse as scheduled today.
[2019-05-15] MEDS: THIAMINE 100mg/ml INJ (200mg/2ml VIAL) IV SCH (09:42)
[2019-05-15] MEDS: cefTRIAXone 1GM/50ML D5W 50 ML IV SCH (09:43)
[2019-05-15] MEDS: FOLIC ACID 1 MG in D5W 5% 50 ML INJ SCH (09:43)
[2019-05-15] MEDS ORDERED: FAMOTIDINE (10MG/ML) 2ML VL IV SCH (10:00)
--- NOTE | 2019-05-15 10:10 | NUR ---
PT IN ULTRASOUND FOR A PARACENTESIS BY DR SANTOS. VSS, 119/26-98-24-100%. 1030: 102/54-60-17-99%. 1045: 103/58-82-16-99%. 1100: 99/21-52-66-100%. 1115: 103/55-62-16-99% 99%. 1130: 96/86-23-80-100%. finished with procedure. PT TOLERATED VERY WELL. VSS. 13,200 ML OF ASCITES FLUID REMOVED. NOT SENT TO LAB,
[2019-05-15] MEDS ORDERED: ALBUMIN 25% 100 ML IV ONE (13:15)
--- NOTE | 2019-05-15 16:43 | NUR ---
assessment Patient is a 63 year old male who is alert and oriented. Patients friend Radha translated for us. Patients cognitive abilities are intact. Prior to admission patient lived home with friends and functioned independently. Per patient he will return home to his prior living arrangements post discharge and a friend will transport him home. Patient informed me he feels safe returning home post discharge. Patient may need home health for his Sepsis and a home health safety eval. Patient informed me he has cut down on his drinking to 1 or 2 24 once beers per day. Patient informed me he has been drinking for 19 years. I have offered patient resources for inpatient and outpatient ETOH rehabs including AA meeting. Patient accepted resources. I informed patient he has a right to speak to a adoption social worker regarding all care. I informed patient he has a right to participate in any and all discharge planning. I informed patient he has a right to privacy. Patient does not have a POA and advanced directive. I have offered patient information on POA and advanced directives. I informed the patient the advantages and benefits of having an Advanced Directive. Patient verbalized understanding and agreed to discharge plan. Addendum: 05/15/19 at 1647 by Erlinda CASPER Amended: Links added.
--- NOTE | 2019-05-15 17:03 | NUR ---
Received consult for ETOH abuse. Patient was presented with information regarding Drug/Alcohol Service Providers of the following: [facility] [phone], [facility] [phone], [facility] [phone], [email or web address] [phone], [facility] [phone], and [facility] [place] [phone]. Patient verbalized understanding.
[2019-05-15] MEDS: SPIRONOLACTONE 25 MG TAB PO SCH (17:48)
[2019-05-15] MEDS: FAMOTIDINE 20 MG TAB PO SCH (21:52)
[2019-05-16] VITALS (7 sets, daily range): BP systolic 79–95; BP diastolic 50–56
--- NOTE | 2019-05-16 02:15 | NUR ---
OPENING NOTE RECEIVED REPORT FROM BATCHER OPERATOR RN. ASSUMING ROLE OF CARE OF PATIENT AT THIS TIME. PATIENT SHOWING NO SIGN OF DISTRESS, SHORTNESS OF BREATH, AND PATIENT DENIES ANY PAIN AT THIS TIME. BED LOWERED, CALL LIGHT WITHIN REACH, AND PATIENT WILL BE ROUNDED ON EVERY HOUR AND NEEDED.
[2019-05-16] MEDS: SPIRONOLACTONE 25 MG TAB PO SCH (05:22)
--- NOTE | 2019-05-16 05:22 | NUR ---
BP RECHECK 0600 VS CHECK HAD A BP OF 79/43. PATIENT SHOWING NO SIGN OF DISTRESS, SHORTNESS OF BREATH, AND PATIENT DENIES ANY PAIN. PATIENT'S BP RECHECKED AND BP AT 92/51. MAP IS 65. PATIENT STATES THAT THEY FEEL FINE AND PATIENT IS ASYMPTOMATIC. WILL CONTINUE TO MONITOR.
[2019-05-16 06:15] LABS: Calcium 7.5 mg/dL (8.5-10.1); Potassium 4.5 mmol/L (3.5-5.1)
[2019-05-16 06:18] LABS: BUN/Creatinine Ratio 22.4
--- NOTE | 2019-05-16 08:10 | NUR ---
Opening Note Assumed care of patient, he is A & O x4, patient states "no pain, I feel good." No s/s of distress at this time. POC discussed. Bed is in low, locked position, call light within reach. Will continue to monitor Q1h and PRN .
--- NOTE | 2019-05-16 09:00 | NUR ---
Patient positive for MRSA nares, notified by Lab, this RN notified charger operator Sam. Will place sign and notify FELT FINISHER of isolation.
--- NOTE | 2019-05-16 10:30 | NUR ---
Dr. Frank notified of MRSA, patient BP trending low. Will medicate per orders. Dr. Frank would like to give meds, albumin and then if patient stable, discharge home.
[2019-05-16] MEDS: cefTRIAXone 1GM/50ML D5W 50 ML IV SCH (11:17)
[2019-05-16] MEDS: FOLIC ACID 1 MG in D5W 5% 50 ML INJ SCH (11:19)
[2019-05-16] MEDS: THIAMINE 100mg/ml INJ (200mg/2ml VIAL) IV SCH (11:24)
[2019-05-16] MEDS: FAMOTIDINE 20 MG TAB PO SCH ×2 (11:24→23:27)
[2019-05-16] MEDS ORDERED: ALBUMIN 25% 50 ML IV ONE (11:30)
[2019-05-16] MEDS ORDERED: MUPIROCIN 2% OINT 15gm or 22gm TOP ONE (11:30)
--- NOTE | 2019-05-16 14:00 | NUR ---
Notified php lamp developer Sam Patient states "my friend can pick me up at 1130 tonight, I don't have another ride." Patient lives in [place] and is weak, patient uses a walker for assistance. Will continue to monitor until ride arrives.
[2019-05-16] MEDS ORDERED: MUPI2OIN2 EX ×2 (19:51→19:54)
--- NOTE | 2019-05-16 20:21 | NUR ---
Pt with dc orders. B/p s/p paracentesis today and Albmin drip 85/56 and HR 68. Hospitalist paged at this time. Addendum: 05/16/19 at 2024 by SUSHILA VALDES RN correction : Paracentesis was done 05/15/19
--- NOTE | 2019-05-16 20:35 | NUR ---
Hospitalist, Chris Kuo DOCTOR OF MEDICINE returned page. Status report given re: pt decreased b/p= 85/56 and 79/54 with HR=69 and new orders received at this time to hold DC. Explained this to pt with academic coach, Sondra MYERS. Pt verbalizes understanding.
[2019-05-17 04:40] VITALS: BP 88/57
[2019-05-17 08:30] VITALS: BP 96/67
--- NOTE | 2019-05-17 08:30 | NUR ---
PATIENT STATED THAT HE WANTS TO LEAVE AMA AND NOT WAIT FOR THE DOCTOR TPO CLEAR HIM FOR DISCHARGE. LUCIA ACRINIEGA TRANSLATED FOR THE PATIENT. PATIENT STATED THAT HE WILL TAKE THE BUS HOME.
--- NOTE | 2019-05-17 09:13 | NUR ---
AMA Note KEN BAILEY states they want to leave the hospital Against Medical Advice (AMA). Patient encouraged to stay for further treatment/stabilization. DR THOMAS, notified of patient's wishes. Patient advised of the risks and benefits of leaving AMA. Patient verbalized understanding. Patient encouraged to return to the ER if symptoms do not improve or worsen.
== END 2019-05-17 09:12 | disposition left against medical advice (07) | DRG 280 ==
LOC: ER 18:37 → TELE-WESTW 18:38
PROVIDERS: ADMIT Internal Medicine; ATTEND Internal Medicine
PROC: 0W9G3ZZ Drainage of Peritoneal Cavity, Percutaneous Approach (ICD-10-PCS; principal; 2019-05-15)
DX: K70.31 Alcoholic cirrhosis of liver with ascites (principal); D61.818 Other pancytopenia; E44.0 Moderate protein-calorie malnutrition; E87.1 Hypo-osmolality and hyponatremia; E87.70 Fluid overload, unspecified; D64.9 Anemia, unspecified; K59.00 Constipation, unspecified; F10.239 Alcohol dependence with withdrawal, unspecified; J44.9 Chronic obstructive pulmonary disease, unspecified; K52.9 Noninfective gastroenteritis and colitis, unspecified; Z53.21 Procedure and treatment not carried out due to patient leaving prior to being seen by health care provider; Z68.23 Body mass index [BMI] 23.0-23.9, adult; D73.1 Hypersplenism; I51.7 Cardiomegaly; I70.0 Atherosclerosis of aorta; K42.9 Umbilical hernia without obstruction or gangrene; K80.20 Calculus of gallbladder without cholecystitis without obstruction; Z79.899 Other long term (current) drug therapy
CPT/HCPCS: 10022; 36415; 49083; 71250; 74176; 76700; 76942; 80048; 80053; 80320; 81001; 82140; 82150; 83605; 83690; 83735; 84484; 85025; 85610; 85730; 87040; 87081; 96365; 96368; 96375; 97163; 99291; G0378; J0696; J2405; J2543; J3490; J7060; P9047

== ENCOUNTER 2019-06-05 15:16 | Inpatient (IN) | payer MEDICAID ==
[~2019-06-05] VITALS: Ht 172.7 cm; Wt 68.3 kg
[~2019-06-05 15:16] MED LIST changes: +MUPI2OIN2 EX
[2019-06-05 16:38] LABS: Albumin 2.5 g/dL (3.4-5.0); Calcium 7.8 mg/dL (8.5-10.1); Potassium 4.7 mmol/L (3.5-5.1)
[2019-06-05 16:40] LABS: Bilirubin, Total 1.7 mg/dL (0.2-1.0); Total Protein 6.2 g/dL (6.4-8.2)
[2019-06-05 16:42] LABS: INR 1.03 (0.9-1.15); Partial Thromboplastin Time 29.2 sec (23.64-32.05)
[2019-06-05 16:51] LABS: Basophils # (auto) 0 uL; Basophils % (auto) 0.6 % (0.0-2.0); Eosinophils # (auto) 0.1 uL; Hematocrit 28.1 % (41.0-53.0); Hemoglobin 9.9 g/dL (13.5-17.5); Lymphocytes # (auto) 0.4 uL; Lymphocytes % (auto) 10.9 % (10.0-50.0); Mean Corpuscular Hemoglobin 31.8 pg (28.0-32.0); Mean Corpuscular Hgb Conc. 35.1 g/dL (32.0-36.0); Mean Corpuscular Volume 90.5 fL (80.0-100.0); Monocytes # (auto) 0.4 uL; Monocytes % (auto) 10.7 % (0.0-12.0); Neutrophils # (auto) 2.5 uL; Neutrophils % (auto) 75.8 % (37.0-80.0); Platelet Count (auto) 148 10^3/uL (140-450); Red Cell Distribution Width 18.1 % (11.8-14.3); White Blood Cell 3.3 10^3/uL (4.4-10.8)
[2019-06-05] MEDS ORDERED: traMADol HCL 50 MG TAB PO PRN (18:45)
[2019-06-05] MEDS ORDERED: ACETAMINOPHEN 500 MG TAB PO PRN (18:45)
[2019-06-05] MEDS ORDERED: NITROGLYCERIN 0.4 MG SL TAB SL PRN (18:45)
[2019-06-05] MEDS ORDERED: MORPHINE SULF INJ 2 MG/ML SYRINGE 1ML IV PRN (18:45)
[2019-06-05] MEDS ORDERED: TEMAZEPAM 15 MG CAP PO PRN (18:45)
[2019-06-05] MEDS ORDERED: ALBUTEROL SULF 2.5 MG/0.5ML(0.5%) NEB SOLN NEB PRN (18:45)
[2019-06-05] MEDS ORDERED: cefTRIAXone 1GM/50ML D5W 50 ML IV ONE (18:45)
[2019-06-05] MEDS ORDERED: MORPHINE SULFATE 4 MG/ML SYR/VIAL IV PRN (18:45)
[2019-06-05] MEDS ORDERED: PROMETHAZINE HCL 25 MG/ML 1ML IV PRN (18:45)
[2019-06-05] MEDS ORDERED: THIAMINE 100mg/ml INJ (200mg/2ml VIAL) IV ONE (19:15)
[2019-06-05] MEDS ORDERED: chlordiazePOXIDE HCL 25 MG CAP PO PRN (19:15)
--- NOTE | 2019-06-05 20:25 | NUR ---
Telemetry admit from ER KEN BAILEY admitted to Telemetry unit. Patient oriented to KETTY LOCK, RN primary RN, unit, room, bed, and unit policies regarding patient care and visiting hours. Patient now on continuous telemetry monitoring, tele box #67 and telemetry reading on arrival to unit is SR. Patient, weighed by bedscale and encouraged to call if they need something. All questions and concerns addressed, patient verbalized understanding. VS B/P100/71, RR 20, pain 7/10 to abd, HR 70, O2 saturation via room air 97%. weight 81.2 kg.
[2019-06-05 22:00] VITALS: BP 100/71
[2019-06-05] MEDS: LACTULOSE 20Gm/30ML SOLN PO SCH (22:00)
[2019-06-05] MEDS: metroNIDAZOLE 500MG/100ML 100 ML IV SCH (22:00)
--- NOTE | 2019-06-05 23:37 | NUR ---
MRSA NASAL SWAB SAMPLE SENT TO LAB
[2019-06-06] VITALS (9 sets, daily range): BP systolic 84–104; BP diastolic 46–71
--- NOTE | 2019-06-06 02:23 | NUR ---
RT NOTE: MED NEB TX MISSED, DUE TO ER WORKLOAD.
--- NOTE | 2019-06-06 02:42 | NUR ---
CHECKED ON PT, PT ON ROOM AIR SPO2 98% HR 65, RR 18 WITH NO DISTRESS. NOTED. PT NOTIFIED OF BREATHING TX AND WILL START SCHEDULED TX AT 0600
[2019-06-06] MEDS: metroNIDAZOLE 500MG/100ML 100 ML IV SCH ×3 (05:49→22:25)
[2019-06-06] MEDS: chlordiazePOXIDE HCL 5 MG CAP PO SCH ×5 (05:49→22:00)
[2019-06-06] MEDS ORDERED: FUROSEMIDE 20 MG TAB PO SCH (06:00)
[2019-06-06] MEDS ORDERED: SPIRONOLACTONE 25 MG TAB PO SCH (06:00)
[2019-06-06] MEDS: ALBUTEROL SULF 2.5 MG/0.5ML(0.5%) NEB SOLN NEB SCH ×4 (07:05→18:10)
--- NOTE | 2019-06-06 07:25 | NUR ---
Opening Shift Note Report received from NOC RN and this RN/reproduction machine loader introduced to patient. Patient awake, alert and without current S/S acute distress. Discussed POC with patient, who verbalized understanding and knows to remain NPO until after possible paracentesis. Patient has call patel within reach and understands to call if needing assistance.
--- NOTE | 2019-06-06 07:30 | NUR ---
REPORT GIVEN TO DAYSHIFT RN. ALL QUESTIONS AND CONCERNS RELATED TO PATIENT ANSWERED
[2019-06-06] MEDS: THIAMINE 100mg/ml INJ (200mg/2ml VIAL) IV SCH (08:47)
[2019-06-06] MEDS: cefTRIAXone 1GM/50ML D5W 50 ML IV SCH (08:47)
[2019-06-06] MEDS: LACTULOSE 20Gm/30ML SOLN PO SCH ×2 (10:00→22:00)
--- NOTE | 2019-06-06 10:50 | NUR ---
Paracentesis/ MD at bedside Paracentesis completed at bedside by BeCouply, 14L removed total. BP 88/50 at this time, MD at bedside discussed hospice care with patient, discontinue telemetry, discontinue GI consult, and administer albumin to increase BP. Orders placed into EMR.
[2019-06-06 10:57] LABS: Basophils # (auto) 0 uL; Basophils % (auto) 0.9 % (0.0-2.0); Eosinophils # (auto) 0.1 uL; Eosinophils % (auto) 2.2 % (0.0-7.0); Hemoglobin 9.3 g/dL (13.5-17.5); Lymphocytes # (auto) 0.4 uL; Lymphocytes % (auto) 12.9 % (10.0-50.0); Mean Corpuscular Hemoglobin 32.3 pg (28.0-32.0); Mean Corpuscular Hgb Conc. 35.8 g/dL (32.0-36.0); Mean Corpuscular Volume 90.2 fL (80.0-100.0); Monocytes # (auto) 0.4 uL; Monocytes % (auto) 13.2 % (0.0-12.0); Neutrophils % (auto) 70.8 % (37.0-80.0); Platelet Count (auto) 116 10^3/uL (140-450); Red Blood Cells 2.89 10^6/uL (4.5-5.90); Red Cell Distribution Width 17.6 % (11.8-14.3); White Blood Cell 2.8 10^3/uL (4.4-10.8)
[2019-06-06] MEDS ORDERED: ALBUMIN 25% 50 ML IV ONE (11:00)
[2019-06-06 11:26] LABS: BUN/Creatinine Ratio 30.9; Calcium 7.8 mg/dL (8.5-10.1); Potassium 4.4 mmol/L (3.5-5.1)
[2019-06-06] MEDS: PANTOPRAZOLE 40 MG TAB PO SCH (12:41)
--- NOTE | 2019-06-06 15:00 | NUR ---
Family contact Found Ava, sister's number in previous visit information. Phone number is [phone]. Ava stated she is not in the best health and can not care for patient at her home, however other sister Kalie may be able to in [place]. She stated she does not have this number on her right now, but if someone can call her in 20 minutes she will have it. director of employer services, Waleska, notified of this situation and given number to contact family for hospice services to be set up prior to discharge.
--- NOTE | 2019-06-06 15:09 | NUR ---
Hospice contact Danette from [facility] called and requested Ava's number, provided and discussed situation previously noted. She is going to contact Ava.
--- NOTE | 2019-06-06 16:00 | NUR ---
LOW BP Patient BP 83/37, not symptomatic at this time. MD called and order received to repeat 1x dose of albumin, hold lasix and aldactone.
[2019-06-06] MEDS ORDERED: ALBUMIN 25% 100 ML IV ONE (16:15)
--- NOTE | 2019-06-06 17:49 | NUR ---
Discharge panning per consult, patient has orders to dc with hospice. Referral was faxed to [facility]. Evan came to evaluate patient and he advised her he wasn't sure if he was going to [place] with a sister or here in [facility] with a sister. Nurse López spoke with sister Ava [phone], who advised she was ill herself and could not accept him but maybe her other sister Kalie in [place] but wouldn't provide a number. patient and family speak Hungarian so ENZO Bruno communicated with patient and family. Kiana spoke with sister Ava and she advised they have another sister Savana [phone] but she may not accept him either. Kiana spoke with Savana and she advised she will not accept him, maybe sister Kalie but again would not provide a number for Kalie, she advised Kalie would contact the hospital. Kiana spoke with patient and he advised that he is renting a room in [place] but wasn't sure if he was going there or with either of his two sister's down the [place]. Nurse López was advised of update on dc plan and advised she also advised Dr. Goodman of discharge barrier. Addendum: 06/06/19 at 1757 by SONIA WILKINSON Amended: Links added.
--- NOTE | 2019-06-06 19:30 | NUR ---
Opening Shift Note Assumed care of patient, awake and alert. No S/S of distress/SOB or pain. Instructed on POC and to call for assist PRN, will continue to monitor for changes Q1hr and PRN.
--- NOTE | 2019-06-06 19:30 | NUR ---
Discharge held Discharge held case management working on case, patient has no permanent home at this time for discharge with hospice.
--- NOTE | 2019-06-06 22:40 | NUR ---
ASSISTED PATIENT WITH BED LINEN CHANGE AND BED BATH.
[2019-06-07 05:16] VITALS: BP_SYST 82; BP_SYST 84; BP_DIAS 48; BP_DIAS 53
[2019-06-07] MEDS: metroNIDAZOLE 500MG/100ML 100 ML IV SCH ×3 (05:33→22:00)
[2019-06-07] MEDS: chlordiazePOXIDE HCL 5 MG CAP PO SCH ×3 (05:33→18:00)
--- NOTE | 2019-06-07 05:56 | NUR ---
informed hospitalist of b/p 84/53, HR 60, RR 22, 02 saturation 98%. informed hospitalist of b/p recheck 82/53. new orders for albumin 5% 250ml IVPB times one time. orders read back and verified.
[2019-06-07] MEDS ORDERED: ALBUMIN 5% 250 ML IV ONE (06:00)
[2019-06-07] MEDS: ALBUTEROL SULF 2.5 MG/0.5ML(0.5%) NEB SOLN NEB SCH ×5 (06:12→19:37)
--- NOTE | 2019-06-07 07:20 | NUR ---
REPORT GIVEN AND ENDORSED CARE TO DAY SHIFT RN. INFORMED RN OF PATIENTS LOW BLOOD PRESSURE AND PATIENT IS RUNNING ALBUMIN PER HOSPITALIST ORDERS.
--- NOTE | 2019-06-07 08:00 | NUR ---
Morning note Assumed care of patient, awake and alert. No S/S of distress/SOB or pain. Bed in lowest position, breaks locked, side rails up x2, call light with in reach. Instructed on POC and to call for assist PRN, will continue to monitor for changes Q1hr and PRN.
[2019-06-07 08:30] VITALS: BP 78/47
[2019-06-07 09:19] VITALS: BP 78/47
[2019-06-07] MEDS: LACTULOSE 20Gm/30ML SOLN PO SCH ×2 (10:00→22:00)
--- NOTE | 2019-06-07 10:51 | NUR ---
RE: Hospice/on-call ENZO Spoke with Kristen, on-call CM, to receive clarification if patient accepted hospice with [facility]. Kristen to call this RN back with update.
[2019-06-07] MEDS: THIAMINE 100mg/ml INJ (200mg/2ml VIAL) IV SCH (10:53)
[2019-06-07] MEDS: PANTOPRAZOLE 40 MG TAB PO SCH (10:53)
--- NOTE | 2019-06-07 11:47 | NUR ---
06/07/19 television reporter-I received a page from nurse Dash asking about the Hospice status for this patient. I called [facility] [phone] and spoke with Lanie, she said she will have some one work on/look at his case and will give me a call back.
--- NOTE | 2019-06-07 12:00 | NUR ---
Medication held: Chlordiazepoxide held due to patients low blood pressure. Medication side effect is hypotension.
[2019-06-07] MEDS: cefTRIAXone 1GM/50ML D5W 50 ML IV SCH (12:03)
--- NOTE | 2019-06-07 12:38 | NUR ---
SPOKE WITH DOCTOR MAHESH ABOUT PATIENTS LOW BLOOD PRESSURE. NEW ORDER RECEIVED, SEE EMR FOR ORDER.
[2019-06-07] MEDS ORDERED: SODIUM CHLORIDE 0.9% 1,000 ML IV ONE (12:45)
--- NOTE | 2019-06-07 12:52 | NUR ---
Hospice nurse at bedside.
[2019-06-07] MEDS ORDERED: SODIUM CHLORIDE 0.9% 200 ML IV ONE (13:00)
[2019-06-07 14:22] VITALS: BP 76/45
--- NOTE | 2019-06-07 14:30 | NUR ---
PATIENT TO BE PICKED UP BY [facility] ETA 1530.
--- NOTE | 2019-06-07 15:02 | NUR ---
Blood pressure MD Paiz aware of low blood pressure. Per MD notify if SBP less then 79 MMHG.
--- NOTE | 2019-06-07 15:25 | NUR ---
Updated hospice agency on POC Patient to be discharged 06/08/19 and transportation to be at [address] Paiz. Updated Lanie RN at [facility]. Lanie verbalized understanding.
[2019-06-07 17:07] VITALS: BP 93/66
--- NOTE | 2019-06-07 19:30 | NUR ---
Care endorsed to NOC LUCIA Graf Patient awake and alert respiration are even and unlabored patient is resting in bed. No s/s of distress noted.
--- NOTE | 2019-06-07 19:32 | NUR ---
Opening Shift Note Assumed care of patient, awake and alert x4. No S/S of distress/SOB or pain. Instructed on POC and to call for assist PRN, will continue to monitor for changes Q1hr and PRN.
[2019-06-07 22:00] VITALS: BP 95/65
[2019-06-08] MEDS: ALBUTEROL SULF 2.5 MG/0.5ML(0.5%) NEB SOLN NEB SCH ×2 (00:02→06:37)
--- NOTE | 2019-06-08 03:28 | NUR ---
Report given to Alyson MYERS Patient is resting in bed, no S/S of distress or pain. Call light is within reach. Addendum: 06/08/19 at 0349 by ALISON ANDREWS RN RN Report given to Louann MYERS*
--- NOTE | 2019-06-08 03:40 | NUR ---
Pt received from Lesia MYERS. POC reviewed.
[2019-06-08 05:00] VITALS: BP_SYST 100; BP_SYST 125; BP_DIAS 59; BP_DIAS 63
[2019-06-08] MEDS: chlordiazePOXIDE HCL 5 MG CAP PO SCH ×2 (06:00)
[2019-06-08] MEDS: metroNIDAZOLE 500MG/100ML 100 ML IV SCH (06:04)
--- NOTE | 2019-06-08 07:02 | NUR ---
Report given to bella MYERS. POC reviewed.
[2019-06-08] MEDS: cefTRIAXone 1GM/50ML D5W 50 ML IV SCH (09:00)
[2019-06-08 09:38] VITALS: BP 79/43
--- NOTE | 2019-06-08 09:50 | NUR ---
Discharge instructions given as ordered. Encourage to follow up with PMD as instructed. All questions and concerns addressed. Patient verbalized understanding. Medication reconciliation form completed and copy given to patient. Patient taken to vehicle via wheelchair with all personal belongings, accompanied by transport staff to medical van for transport home. No distress noted at time of departure.
--- NOTE | 2019-06-09 08:35 | NUR ---
call center associate 06/07/19-I spoke with Lanie again with [facility], she will go to hospital to see patient/make arrangements for transfer home/equipment.
== END 2019-06-08 09:50 | disposition hospice, home (50) | DRG 280 ==
LOC: ER 15:16 → TELE 15:17 → TELE-WESTW 20:22 → WEST WING 06-07 08:28
PROVIDERS: ADMIT Internal Medicine; ATTEND Internal Medicine
PROC: 0W9G30Z Drainage of Peritoneal Cavity with Drainage Device, Percutaneous Approach (ICD-10-PCS; principal; 2019-06-06)
DX: K70.31 Alcoholic cirrhosis of liver with ascites (principal); K72.90 Hepatic failure, unspecified without coma; E87.8 Other disorders of electrolyte and fluid balance, not elsewhere classified; E87.1 Hypo-osmolality and hyponatremia; J44.9 Chronic obstructive pulmonary disease, unspecified; I10 Essential (primary) hypertension; E88.09 Other disorders of plasma-protein metabolism, not elsewhere classified; Z85.118 Personal history of other malignant neoplasm of bronchus and lung; Z79.899 Other long term (current) drug therapy
CPT/HCPCS: 10022; 36415; 49083; 76705; 76942; 80048; 80053; 82140; 83690; 83735; 85025; 85610; 85730; 87081; 94640; 94761; 96365; 96366; 96375; G0378; J0696; J3490; P9047

== ENCOUNTER 2019-12-27 14:39 | Inpatient (IN) | payer MEDICAID ==
[~2019-12-27] VITALS: Ht 165.1 cm; Wt 58.0 kg
[~2019-12-27 14:39] MED LIST changes: -MUPI2OIN2 EX
[2019-12-27 15:21] LABS: Basophils # (auto) 0 10 ^3/uL (0-0.2); Basophils % (auto) 0.6 % (0.0-2.0); Eosinophils # (auto) 0.2 10 ^3/uL (0-0.8); Hematocrit 25.2 % (41.0-53.0); Hemoglobin 8.8 g/dL (13.5-17.5); Lymphocytes # (auto) 0.5 10 ^3/uL (0.4-5.4); Lymphocytes % (auto) 6.6 % (10.0-50.0); Mean Corpuscular Hemoglobin 33.1 pg (28.0-32.0); Mean Corpuscular Hgb Conc. 34.9 g/dL (32.0-36.0); Monocytes # (auto) 0.6 10 ^3/uL (0-1.3); Monocytes % (auto) 8.8 % (0.0-12.0); Neutrophils # (auto) 5.7 10 ^3/uL (1.6-8.6); Platelet Count (auto) 181 10^3/uL (140-450); Red Blood Cells 2.65 10^6/uL (4.5-5.90); Red Cell Distribution Width 16.4 % (11.8-14.3)
[2019-12-27 15:41] LABS: Albumin 2.5 g/dL (3.4-5.0); BUN/Creatinine Ratio 35.6; Calcium 7.7 mg/dL (8.5-10.1)
[2019-12-27 15:42] LABS: Bilirubin, Total 0.8 mg/dL (0.2-1.0); Total Protein 6.7 g/dL (6.4-8.2)
[2019-12-27 15:44] LABS: Magnesium 2.1 mg/dL (1.6-2.6)
[2019-12-27 15:51] LABS: Potassium 5.6 mmol/L (3.5-5.1)
[2019-12-27] MEDS ORDERED: FOLIC ACID 1 MG, MULTIPLE VITAMIN 10 ML, MAGNESIUM SULF SDV 50% 8 MEQ, THIAMINE INJ 100... INJ STA ×5 (16:01)
[2019-12-27] MEDS ORDERED: LACTULOSE 20Gm/30ML SOLN PO ONE (16:15)
[2019-12-27] MEDS ORDERED: THIAMINE HCL 100 MG TAB PO ONE (16:15)
[2019-12-27] MEDS ORDERED: NITROGLYCERIN 0.4 MG SL TAB SL PRN (18:15)
[2019-12-27] MEDS ORDERED: MORPHINE SULF INJ 2 MG/ML SYRINGE 1ML IV PRN (18:15)
[2019-12-27] MEDS ORDERED: traMADol HCL 50 MG TAB PO PRN (19:00)
[2019-12-27] MEDS ORDERED: chlordiazePOXIDE HCL 25 MG CAP PO PRN (19:00)
[2019-12-27] MEDS ORDERED: levoFLOXacin 500MG 100 ML IV ONE (19:00)
[2019-12-27] MEDS ORDERED: THIAMINE 100mg/ml INJ (200mg/2ml VIAL) IV ONE (19:00)
[2019-12-27] MEDS ORDERED: InsuLIN REG 1unit/0.01ml Soln (100units/ml) IV ONE (19:00)
[2019-12-27] MEDS ORDERED: DEXTROSE (50%) 50ML SYRG IV ONE (19:00)
[2019-12-27] MEDS ORDERED: SODIUM BICARBONATE 8.4% INJ 50ML SYRINGE IV ONE (19:00)
[2019-12-27] MEDS ORDERED: SODIUM ZIRCONIUM CYCL 10 GM PAK PO ONE (19:00)
[2019-12-27] MEDS ORDERED: PROMETHAZINE HCL 25 MG/ML 1ML IV PRN (19:00)
[2019-12-27 20:10] VITALS: BP 120/80
[2019-12-27] MEDS: FUROSEMIDE 40 MG/4 ML VIAL IV SCH (20:49)
[2019-12-27] MEDS: CLINDAMYCIN 600MG IV 50 ML IV SCH (21:23)
[2019-12-27] MEDS: FAMOTIDINE 20 MG TAB PO SCH (21:23)
[2019-12-27 22:00] VITALS: BP 128/80
[2019-12-28] MEDS: chlordiazePOXIDE HCL 5 MG CAP PO SCH ×5 (01:16→23:17)
[2019-12-28 05:00] VITALS: BP 91/52
[2019-12-28] MEDS: CLINDAMYCIN 600MG IV 50 ML IV SCH ×3 (05:52→22:00)
[2019-12-28 06:35] LABS: Basophils # (auto) 0 10 ^3/uL (0-0.2); Basophils % (auto) 0.1 % (0.0-2.0); Eosinophils # (auto) 0 10 ^3/uL (0-0.8); Hemoglobin 7.6 g/dL (13.5-17.5); Lymphocytes # (auto) 0.2 10 ^3/uL (0.4-5.4)
[2019-12-28 06:37] LABS: Hematocrit 22.2 % (41.0-53.0); Lymphocytes % (auto) 1.4 % (10.0-50.0); Mean Corpuscular Hemoglobin 32.3 pg (28.0-32.0); Mean Corpuscular Hgb Conc. 34.3 g/dL (32.0-36.0); Mean Corpuscular Volume 94.1 fL (80.0-100.0); Monocytes # (auto) 0.4 10 ^3/uL (0-1.3); Monocytes % (auto) 2.5 % (0.0-12.0); Platelet Count (auto) 108 10^3/uL (140-450); Red Blood Cells 2.36 10^6/uL (4.5-5.90); Red Cell Distribution Width 15.8 % (11.8-14.3); White Blood Cell 14.6 10^3/uL (4.4-10.8)
[2019-12-28 06:52] LABS: Albumin 2.1 g/dL (3.4-5.0); Calcium 7.4 mg/dL (8.5-10.1); Potassium 5.1 mmol/L (3.5-5.1)
[2019-12-28 06:57] LABS: BUN/Creatinine Ratio 33.7; Total Protein 5.8 g/dL (6.4-8.2)
[2019-12-28 09:00] VITALS: BP 100/53
[2019-12-28] MEDS: levoFLOXacin 500MG 100 ML IV SCH (09:45)
[2019-12-28] MEDS: FUROSEMIDE 40 MG/4 ML VIAL IV SCH (09:45)
[2019-12-28] MEDS: FAMOTIDINE 20 MG TAB PO SCH ×2 (09:46→22:00)
[2019-12-28] MEDS ORDERED: THIAMINE 100mg/ml INJ (200mg/2ml VIAL) IV SCH (10:00)
[2019-12-28 13:00] VITALS: BP 146/84
[2019-12-28] MEDS ORDERED: SPIRONOLACTONE 25 MG TAB PO ONE (15:30)
[2019-12-28 16:58] LABS: Urine Bacteria NONE SEEN /hpf (None Seen); Urine Blood TRACE /uL (Negative); Urine Hyaline Cast FEW /lpf (0 - 2); Urine Specific Gravity 1.006 (1.001-1.035); Urine WBC <1 /hpf (0 - 3)
[2019-12-28 17:00] VITALS: BP 118/58
[2019-12-28 22:00] VITALS: BP 153/87
[2019-12-28] MEDS: LACTULOSE 20Gm/30ML SOLN PO SCH (22:00)
[2019-12-29 05:00] VITALS: BP 124/67
[2019-12-29] MEDS: CLINDAMYCIN 600MG IV 50 ML IV SCH ×3 (05:49→21:46)
[2019-12-29] MEDS: chlordiazePOXIDE HCL 5 MG CAP PO SCH ×4 (05:49→23:48)
[2019-12-29 09:28] VITALS: BP 122/71
[2019-12-29] MEDS ORDERED: PNEUMOCOCCAL VACC POLYS 25 MCG/0.5 ML VIAL IM ONE (10:00)
[2019-12-29 10:09] LABS: INR 1.23 (0.9-1.15)
[2019-12-29] MEDS: levoFLOXacin 500MG 100 ML IV SCH (10:15)
[2019-12-29] MEDS: SPIRONOLACTONE 25 MG TAB PO SCH (10:15)
[2019-12-29] MEDS: FAMOTIDINE 20 MG TAB PO SCH ×2 (10:15→21:47)
[2019-12-29] MEDS: LACTULOSE 20Gm/30ML SOLN PO SCH ×2 (10:15→21:47)
[2019-12-29] MEDS: FUROSEMIDE 40 MG/4 ML VIAL IV SCH (10:15)
[2019-12-29 13:00] VITALS: BP 126/77
[2019-12-29] MEDS ORDERED: ALBUMIN 25% 0 ML IV ONE (14:01)
[2019-12-29] MEDS ORDERED: ALBUMIN 25% IV ONE (14:03)
[2019-12-29] MEDS ORDERED: ALBUMIN 25% 50 ML IV ONE ×2 (14:15)
[2019-12-29] MEDS: ALBUMIN 25% 100 ML IV SCH ×2 (14:44→16:00)
[2019-12-29 17:07] VITALS: BP 93/46
[2019-12-29] MEDS: Ensure HIGH Protein Chocolate 8oz Bottle PO SCH (18:50)
[2019-12-29 22:00] VITALS: BP 98/50
[2019-12-30 05:00] VITALS: BP 92/47
[2019-12-30] MEDS: chlordiazePOXIDE HCL 5 MG CAP PO SCH ×4 (05:21→23:53)
[2019-12-30] MEDS: CLINDAMYCIN 600MG IV 50 ML IV SCH ×3 (05:21→21:21)
[2019-12-30 06:05] LABS: Basophils # (auto) 0 10 ^3/uL (0-0.2); Basophils % (auto) 0.5 % (0.0-2.0); Eosinophils # (auto) 0.2 10 ^3/uL (0-0.8); Hemoglobin 7.9 g/dL (13.5-17.5); Lymphocytes # (auto) 0.3 10 ^3/uL (0.4-5.4); Monocytes # (auto) 0.5 10 ^3/uL (0-1.3); Nucleated Red Blood Cells % 0.1 %; Platelet Count (auto) 117 10^3/uL (140-450); White Blood Cell 5.3 10^3/uL (4.4-10.8)
[2019-12-30 06:07] LABS: Eosinophils % (auto) 3.6 % (0.0-7.0); Hematocrit 22.7 % (41.0-53.0); Lymphocytes % (auto) 6.1 % (10.0-50.0); Mean Corpuscular Hemoglobin 33.2 pg (28.0-32.0); Mean Corpuscular Hgb Conc. 34.9 g/dL (32.0-36.0); Mean Corpuscular Volume 94.9 fL (80.0-100.0); Monocytes % (auto) 9.8 % (0.0-12.0); Neutrophils # (auto) 4.2 10 ^3/uL (1.6-8.6); Red Blood Cells 2.39 10^6/uL (4.5-5.90); Red Cell Distribution Width 16.2 % (11.8-14.3)
[2019-12-30 06:44] LABS: Calcium 7.2 mg/dL (8.5-10.1); Potassium 3.9 mmol/L (3.5-5.1)
[2019-12-30] MEDS: LACTULOSE 20Gm/30ML SOLN PO SCH ×2 (08:47→21:21)
[2019-12-30] MEDS: FAMOTIDINE 20 MG TAB PO SCH ×2 (08:47→21:20)
[2019-12-30] MEDS: SPIRONOLACTONE 25 MG TAB PO SCH (08:47)
[2019-12-30] MEDS: FUROSEMIDE 40 MG/4 ML VIAL IV SCH (08:48)
[2019-12-30] MEDS: levoFLOXacin 500MG 100 ML IV SCH (08:48)
[2019-12-30] MEDS: Ensure HIGH Protein Chocolate 8oz Bottle PO SCH ×3 (08:48→17:20)
[2019-12-30 09:00] VITALS: BP 108/57
[2019-12-30 13:00] VITALS: BP 95/52
[2019-12-30 17:00] VITALS: BP 92/47
[2019-12-30 22:34] VITALS: BP 97/52
[2019-12-31] MEDS: chlordiazePOXIDE HCL 5 MG CAP PO SCH (05:29)
[2019-12-31 05:30] VITALS: BP 94/42
[2019-12-31] MEDS: CLINDAMYCIN 600MG IV 50 ML IV SCH (05:30)
[2019-12-31 09:00] VITALS: BP 98/48
[2019-12-31] MEDS: levoFLOXacin 500MG 100 ML IV SCH (10:00)
[2019-12-31] MEDS: FUROSEMIDE 40 MG/4 ML VIAL IV SCH (10:00)
[2019-12-31] MEDS: FAMOTIDINE 20 MG TAB PO SCH (10:00)
[2019-12-31] MEDS: LACTULOSE 20Gm/30ML SOLN PO SCH (10:00)
[2019-12-31] MEDS: SPIRONOLACTONE 25 MG TAB PO SCH (10:00)
[2019-12-31] MEDS: Ensure HIGH Protein Chocolate 8oz Bottle PO SCH (10:11)
== END 2019-12-31 11:25 | disposition home or self-care (01) | DRG 280 ==
LOC: ER 14:39 → TELE 14:40 → TELE-CENTR 20:13
PROVIDERS: ADMIT Internal Medicine; ATTEND Internal Medicine
PROC: 0W9G30Z Drainage of Peritoneal Cavity with Drainage Device, Percutaneous Approach (ICD-10-PCS; principal; 2019-12-29)
DX: K70.31 Alcoholic cirrhosis of liver with ascites (principal); N17.0 Acute kidney failure with tubular necrosis; E44.0 Moderate protein-calorie malnutrition; D69.6 Thrombocytopenia, unspecified; D68.9 Coagulation defect, unspecified; K72.90 Hepatic failure, unspecified without coma; E87.1 Hypo-osmolality and hyponatremia; R65.10 Systemic inflammatory response syndrome (SIRS) of non-infectious origin without acute organ dysfunction; E87.5 Hyperkalemia; L03.115 Cellulitis of right lower limb; L03.116 Cellulitis of left lower limb; J44.9 Chronic obstructive pulmonary disease, unspecified; N18.9 Chronic kidney disease, unspecified; I12.9 Hypertensive chronic kidney disease with stage 1 through stage 4 chronic kidney disease, or unspecified chronic kidney disease; F10.20 Alcohol dependence, uncomplicated; D63.8 Anemia in other chronic diseases classified elsewhere; Z80.1 Family history of malignant neoplasm of trachea, bronchus and lung; Z79.899 Other long term (current) drug therapy; Z82.49 Family history of ischemic heart disease and other diseases of the circulatory system; E88.09 Other disorders of plasma-protein metabolism, not elsewhere classified
CPT/HCPCS: 10022; 36415; 71045; 76700; 76942; 80048; 80053; 80320; 81001; 82140; 82962; 83036; 83690; 83735; 84443; 84484; 85025; 85610; 87040; 93005; 96365; G0378; J1815; J1956; J3490; P9047

== ENCOUNTER 2020-02-13 13:04 | Inpatient (IN) | payer MEDICAID ==
[2020-02-13] VITALS (20 sets, daily range): BP systolic 79–110; BP diastolic 48–63
[~2020-02-13] VITALS: Ht 167.6 cm; Wt 54.3 kg
[2020-02-13 13:52] LABS: Basophils # (auto) 0 10 ^3/uL (0-0.2); Basophils % (auto) 0.9 % (0.0-2.0); Eosinophils # (auto) 0.2 10 ^3/uL (0-0.8); Mean Corpuscular Hemoglobin 32.1 pg (28.0-32.0); Red Cell Distribution Width 15.2 % (11.8-14.3)
[2020-02-13 13:58] LABS: Eosinophils % (auto) 4.1 % (0.0-7.0); Hematocrit 23.5 % (41.0-53.0); Lymphocytes # (auto) 0.3 10 ^3/uL (0.4-5.4); Lymphocytes % (auto) 6.7 % (10.0-50.0); Mean Corpuscular Hgb Conc. 33.8 g/dL (32.0-36.0); Mean Corpuscular Volume 94.9 fL (80.0-100.0); Monocytes # (auto) 0.5 10 ^3/uL (0-1.3); Monocytes % (auto) 8.9 % (0.0-12.0); Neutrophils # (auto) 4.1 10 ^3/uL (1.6-8.6); Neutrophils % (auto) 79.4 % (37.0-80.0); Platelet Count (auto) 154 10^3/uL (140-450); Red Blood Cells 2.48 10^6/uL (4.5-5.90); White Blood Cell 5.2 10^3/uL (4.4-10.8)
[2020-02-13 14:12] LABS: Albumin 2.3 g/dL (3.4-5.0); Calcium 7.5 mg/dL (8.5-10.1); Potassium 4.9 mmol/L (3.5-5.1)
[2020-02-13 14:15] LABS: Bilirubin, Total 0.7 mg/dL (0.2-1.0); INR 1.12 (0.9-1.15); Partial Thromboplastin Time 27.1 sec (23.64-32.05); Total Protein 6.4 g/dL (6.4-8.2)
[2020-02-13] MEDS ORDERED: MORPHINE SULF INJ 2 MG/ML SYRINGE 1ML IV PRN (15:30)
[2020-02-13] MEDS ORDERED: ALBUMIN 5% 50 ML IV ONE (15:30)
[2020-02-13] MEDS ORDERED: NITROGLYCERIN 0.4 MG SL TAB SL PRN (15:30)
[2020-02-13] MEDS ORDERED: ONDANSETRON HCL 4 MG/2 ML VIAL IV PRN (15:45)
[2020-02-13] MEDS ORDERED: SODIUM CHLORIDE 0.9% 500 ML IV ONE ×2 (15:45→16:15)
[2020-02-13] MEDS ORDERED: ACETAMINOPHEN 500 MG TAB PO PRN (15:45)
[2020-02-13] MEDS ORDERED: traMADol HCL 50 MG TAB PO PRN (15:45)
[2020-02-13] MEDS ORDERED: LACTULOSE 20Gm/30ML SOLN PO ONE (15:45)
[2020-02-13] MEDS ORDERED: CLINDAMYCIN 900MG IV 50 ML IV ONE (15:45)
[2020-02-13] MEDS ORDERED: PIPERACILLIN-TAZOB 3.375GM 100 ML IV ONE (16:30)
[2020-02-13] MEDS ORDERED: SODIUM CHLORIDE 0.9% 1,000 ML IV ONE (16:45)
[2020-02-13] MEDS: NOREPINEPHRINE 8 MG/250ML KIT 250 ML IV SCH ×4 (17:04→18:31)
[2020-02-13] MEDS: ALBUMIN 25% 100 ML IV SCH ×2 (17:16→19:01)
[2020-02-13] MEDS: LACTULOSE 20Gm/30ML SOLN PO SCH (18:52)
[2020-02-13] MEDS: CLINDAMYCIN 600MG IV 50 ML IV SCH (23:21)
[2020-02-14] VITALS (47 sets, daily range): BP systolic 78–126; BP diastolic 44–67
--- NOTE | 2020-02-14 | NUR ---
DISCUSSED THE IMPORTANCE OF TAKING LACTULOSE; PT. DOES NOT WANT IN THE NIGHT IT GIVES HIM DIARRHEA; PT. AGREED THAT DAY TIME, HE WILL TAKE IT.
[2020-02-14] MEDS: PIPERACILLIN-TAZOB 3.375GM 100 ML IV SCH ×2 (05:46)
[2020-02-14] MEDS: LACTULOSE 20Gm/30ML SOLN PO SCH ×5 (06:00→23:32)
[2020-02-14] MEDS: CLINDAMYCIN 600MG IV 50 ML IV SCH (06:00)
[2020-02-14 07:10] LABS: Basophils # (auto) 0 10 ^3/uL (0-0.2); Basophils % (auto) 0.6 % (0.0-2.0); Eosinophils # (auto) 0.5 10 ^3/uL (0-0.8); Eosinophils % (auto) 6.6 % (0.0-7.0); Hematocrit 27.8 % (41.0-53.0); Hemoglobin 9.5 g/dL (13.5-17.5); Lymphocytes # (auto) 0.6 10 ^3/uL (0.4-5.4); Lymphocytes % (auto) 8.7 % (10.0-50.0); Mean Corpuscular Hemoglobin 32.3 pg (28.0-32.0); Mean Corpuscular Hgb Conc. 34.1 g/dL (32.0-36.0); Monocytes # (auto) 0.7 10 ^3/uL (0-1.3); Monocytes % (auto) 9.4 % (0.0-12.0); Neutrophils # (auto) 5.5 10 ^3/uL (1.6-8.6); Neutrophils % (auto) 74.7 % (37.0-80.0); Platelet Count (auto) 216 10^3/uL (140-450); Red Blood Cells 2.93 10^6/uL (4.5-5.90); Red Cell Distribution Width 15.2 % (11.8-14.3); White Blood Cell 7.3 10^3/uL (4.4-10.8)
[2020-02-14 07:28] LABS: Albumin 2.6 g/dL (3.4-5.0); Calcium 7.6 mg/dL (8.5-10.1); Potassium 4.3 mmol/L (3.5-5.1)
[2020-02-14 07:33] LABS: BUN/Creatinine Ratio 31.5; Bilirubin, Total 0.9 mg/dL (0.2-1.0); Phosphorus 3.4 mg/dL (2.5-4.90)
[2020-02-14] MEDS: PANTOPRAZOLE 40 MG TAB PO SCH (10:42)
[2020-02-14] MEDS ORDERED: ALBUMIN 25% 50 ML IV ONE (12:15)
[2020-02-14] MEDS ORDERED: ALBUMIN 5% 50 ML IV ONE (12:15)
[2020-02-14] MEDS ORDERED: ALBUMIN 25% 100 ML IV ONE (12:15)
[2020-02-14 13:51] LABS: Urine Bacteria FEW /hpf (None Seen); Urine Blood 2+ /uL (Negative); Urine Hyaline Cast FEW /lpf (0 - 2); Urine Specific Gravity 1.017 (1.001-1.035); Urine WBC 3 /hpf (0 - 3)
[2020-02-14 14:08] LABS: Protein, Urine 19.7 mg/dL (0.0-11.9)
[2020-02-14] MEDS: ceFAZolin 1GM/50ML 50 ML IV SCH ×2 (15:15→22:48)
--- NOTE | 2020-02-14 17:50 | NUR ---
Pt being admitted to ICU Patient admitted to ICU via gurney on monitoring and evaluation advisor. Patient transferred to bed, connected to ICU monitoring, [facility] Patient oriented to primary RN, unit, room, bed, and unit policies regarding patient care and visiting hours. Bed is in lowest position and locked. Call light within reach. Board updated. All questions and concerns addressed, patient verbalized understanding.
--- NOTE | 2020-02-14 18:42 | NUR ---
Patient refused Lactulose. Patient educated of importance of taking medication to lower ammonia level. Patient says he does not want to take the medication because it gives him diarrhea. I informed the patient that that is a normal and expected effect of the drug as it captures and removed ammonia through stool. Patient still refused medication.
--- NOTE | 2020-02-14 20:10 | NUR ---
Opening Shift Note Assumed care of patient, awake and alert. No S/S of distress/SOB or pain. On room air breathing comfortably. VS stable. On IV Levophed at 8mcg/min - will titrate to keep SBP >90 and MAP >65 mmHg. Abdomen is still distended. Protruding umbilical hernia with scab. Puncture site of the paracentesis weeping, dressing is soaked and leaking out yellowish output. Patient's gown and chux changed. Given warm blankets as the patient feels cold. AC temp adjusted. Instructed on POC and to call for assist PRN, will continue to monitor for changes Q1hr and PRN.
[2020-02-14] MEDS: ALBUMIN 25% 100 ML IV SCH (21:29)
[2020-02-14] MEDS: rifAXIMin 550 MG TAB PO SCH (21:30)
--- NOTE | 2020-02-14 22:40 | NUR ---
LOWER ABDOMEN DRESSING SOAKED AGAIN, CHUX AND PT'S GOWN WET PATIENT'S GOWN AND CHUX CHANGED LOWER ABDOMEN PUNCTURE SITE COVERED WITH DRAINAGE BAG WILL CONTINUE TO MONITOR
--- NOTE | 2020-02-14 22:45 | NUR ---
LACTULOSE Patient is still refusing lactulose for now even after educated on the need for lactulose. He said he had some bowel movements this morning in ER. He said he will take it tomorrow so that he can rest for tonight.
[2020-02-14] MEDS: NOREPINEPHRINE 8 MG/250ML KIT 250 ML IV SCH (23:06)
--- NOTE | 2020-02-14 23:20 | NUR ---
LAB STAFF CALLED ACCORDING TO THEM THEY RECEIVED A SWAB EARLIER. ASKING THIS RN IF IT IS FOR MRSA. INFORMED THEM THAT IT IS, ACCORDING TO DAY SHIFT. THEY SENT IT AROUND [facility]. LAB STAFF SAID IT IS THE WRONG SWAB FOR MRSA. IT NEEDS TO BE WHITE COLORED TOP. WILL RE-SEND LATER PATIENT IS RESTING NOW. LAB STAFF AGREES.
[2020-02-15] VITALS (95 sets, daily range): BP systolic 67–204; BP diastolic 37–181
--- NOTE | 2020-02-15 03:50 | NUR ---
HYGIENE PATIENT'S CHUX WAS WET AGAIN. DRAINAGE BAG FROM PUNCTURE SITE WAS FULL = DRAINED OUT 200MLS YELLOWISH OUTPUT. PATIENT CLEANED, LINENS CHANGED. REPOSITIONED.
--- NOTE | 2020-02-15 04:10 | NUR ---
IV insertion IV access obtained, via clean sterile technique by inserting 22 gauge catheter at RIGHT FA after 1 attempt(s). IV secured properly. No trauma to site. Patient tolerated well. NOTE: PATIENT COMPLAINS OF PAIN AT THE LEFT FA IV SITE. REDNESS NOTED. IV DISCONTINUED AFTER A NEW IV WAS INSERTED.
--- NOTE | 2020-02-15 04:15 | NUR ---
SKIN TEAR AFTER TAKING OFF DRESSING TO DISCONTINUE LEFT FA IV LINE - PATIENT HAD DEVELOPED SKIN TEAR. SKIN CAME OUT WITH THE DRESSING. PRESSURE APPLIED TO STOP BLEEDING. PICTURE TAKEN FOR WOUND CHART. COVERED WITH OPTIFOAM GENTLE. WILL CONTINUE TO MONITOR
[2020-02-15 04:50] LABS: Eosinophils # (auto) 0.4 10 ^3/uL (0-0.8); Hemoglobin 8.4 g/dL (13.5-17.5); Lymphocytes # (auto) 0.4 10 ^3/uL (0.4-5.4); Monocytes # (auto) 0.5 10 ^3/uL (0-1.3); Neutrophils # (auto) 4.4 10 ^3/uL (1.6-8.6); Red Cell Distribution Width 15.1 % (11.8-14.3); White Blood Cell 5.8 10^3/uL (4.4-10.8)
[2020-02-15 04:52] LABS: Basophils # (auto) 0.1 10 ^3/uL (0-0.2); Basophils % (auto) 0.9 % (0.0-2.0); Eosinophils % (auto) 7.3 % (0.0-7.0); Hematocrit 23.9 % (41.0-53.0); Lymphocytes % (auto) 7.3 % (10.0-50.0); Mean Corpuscular Hgb Conc. 35.2 g/dL (32.0-36.0); Mean Corpuscular Volume 93.7 fL (80.0-100.0); Monocytes % (auto) 9.1 % (0.0-12.0); Neutrophils % (auto) 75.4 % (37.0-80.0); Nucleated Red Blood Cells % 0.1 %; Platelet Count (auto) 162 10^3/uL (140-450); Red Blood Cells 2.55 10^6/uL (4.5-5.90)
[2020-02-15 05:12] LABS: Albumin 2.5 g/dL (3.4-5.0); Calcium 7.4 mg/dL (8.5-10.1); Potassium 4.5 mmol/L (3.5-5.1)
[2020-02-15 05:15] LABS: BUN/Creatinine Ratio 26.3; Bilirubin, Total 0.8 mg/dL (0.2-1.0); Phosphorus 2.9 mg/dL (2.5-4.90); Total Protein 5.3 g/dL (6.4-8.2)
[2020-02-15 05:18] LABS: INR 1.18 (0.9-1.15); Partial Thromboplastin Time 27.5 sec (23.64-32.05)
[2020-02-15] MEDS: ALBUMIN 25% 100 ML IV SCH ×2 (05:23→12:51)
[2020-02-15] MEDS: LACTULOSE 20Gm/30ML SOLN PO SCH ×5 (06:00→23:46)
--- NOTE | 2020-02-15 06:28 | NUR ---
PATIENT IS STILL REFUSING TO TAKE LACTULOSE. HE SAID HE HAD DIARRHEA LAST TIME. INFORMED THAT HIS AMMONIA LEVEL IS STILL HIGH. HE SAID HE WILL TAKE IT LATER AFTER BREAKFAST WILL INFORM DAY SHIFT RN
[2020-02-15] MEDS: ceFAZolin 1GM/50ML 50 ML IV SCH ×3 (07:01→21:35)
--- NOTE | 2020-02-15 07:15 | NUR ---
REPORT REPORT GIVEN TO LUCIA SHORT
--- NOTE | 2020-02-15 09:05 | NUR ---
Paged MD Aquino to request PICC line or central line. patient currently on Levophed 8 mcg/min infusion through peripheral IV.
[2020-02-15] MEDS: PANTOPRAZOLE 40 MG TAB PO SCH (10:10)
[2020-02-15] MEDS: rifAXIMin 550 MG TAB PO SCH ×2 (10:10→21:35)
--- NOTE | 2020-02-15 10:34 | NUR ---
Wound care nurse, Gianna, in to see patient.
--- NOTE | 2020-02-15 10:45 | NUR ---
WOUND CARE NOTE: Wound care in to see patient per wound care request regarding multiple skin integrity issue that are noted present on admission.Bedside nurse took photograph of patient's wounds upon admission for reference. Patient is 64 years old male with admitting diagnosis of Ascites, Hypotension. Patient is resting in ICU bed in Rm. 108. Patient is awake, alert an able to verbalize needs. Patient is in no stated pain at this time and he appears to be in no pain using Shaevr Yates Faces pain Scale. He's able to assist in turning and repositioning and his Bao score is 14. Skin/wound assessment done with the assistance of patient's nurse, LUCIA Story. Noted patient has distended abdomen. His Rt abdomen has protruding hernia with dry intact scab; advised bedside nurse to cleansed with Betadine and leave open to air per MD order. Puncture wound to distal R lower abdomen from previous paracenteses draining moderate amount of serous drainage with collection bag in placed. Patient has open full thickness skin tear to R upper chest (2x1.4cm) and L medial forearm (3.5x1.0). Skin tears are red with purple ecchymotic luis wound, minimal serosanguineous drainage noted, no odor noted. Cleansed skin tears with NS,patted dry with gauze,applied Thera denisa gel, covered Rt upper chest skin tear with Opti foam gentle dressing; covered L forearm skin tear with non-adhesive foam dressing and secured with stockinette. Patient's medial sacrum noted with intact pink scar tissue with blanchable mild redness. Patient also noted with prominent sacral/coccyx bone. Staff initiated skin protection measures with BID/PRN cleaning and application of Z Guard cream to sacrum and applied preventative Opti foam sacral dressing. Patient uses BSC with assist. Patient tolerated well, repositioned patient for comfort. Bed in low position, call patel on hand with all safety precautions in placed. RECOMMENDATION: Nursing to continue with BID/PRN cleaning and application of Z Guard cream sacral, buttocks,perineum as preventative, Q3days/PRN dressing change to skin tears, Daily/PRN cleaning of scab to abdominal hernia per MD order, Dietary consult, frequent turning and repositioning schedule as condition permits, redistribute pressure points with pillows, elevate heels on pillows, continue monitoring by wound care while patient is hospitalized. Addendum: 02/15/20 at 1446 by Gianna Cruz RN Amended: Links added.
--- NOTE | 2020-02-15 11:05 | NUR ---
Danielle in to see patient and review plan of care with patient. No orders received.
--- NOTE | 2020-02-15 12:24 | NUR ---
Spoke to MD Fu regarding possible central line placement. MD Agreed to place a central line. Will have patient sign consents and prepare central line kit for bedside procedure.
--- NOTE | 2020-02-15 12:33 | NUR ---
Nutrition Assessment Notes Please refer to link for full assessment notes. Est Energy needs: 9172-4078 kcals (35-40 kcal/kgBW) d/t pt Liver disease Est Protein needs: 67-80 gms/day (1.0-1.2 gm/kgBW) d/t pt Liver disease Will continue to monitor and reassess prn. Addendum: 02/15/20 at [address] Amended: Links added. Addendum: 02/15/20 at [address] Additiona Recommendations: Consider a daily MVI with 500mg VitC BID
--- NOTE | 2020-02-15 13:12 | NUR ---
Patient refusing to have central line placed at this time. Meredith, Respiratory Therapist, translated to patient that MD Fu would be placing a central line and that we needed him to sign a consent for central line placement and anesthesia. I explained to patient that peripheral IV administration of Levophed is dangerous and that extravasation can lead to tissue necrosis and pain. Patient refused central line because he wants to go home tomorrow and be with his family. We repeated that patient could have serious tissue damage and with patient verbalizing understanding. Patient still refusing to have central line placed.
--- NOTE | 2020-02-15 13:45 | NUR ---
MD Fu made aware that patient is refusing to have a central line placed at this time.
--- NOTE | 2020-02-15 14:00 | NUR ---
MD Aquino in with patient now. Patient communicated that he wants to leave tomorrow morning to go to [place] to live with his sister. MD Aquino attempted to convince patient to allow us to place a central line for the Levophed infusion but patient once again declined. Communication order received: titrate Levophed 1 mcg/min to maintain SBP>90 mmHg and MAP>65 mmHg.
[2020-02-15] MEDS ORDERED: MIDODRINE HCL 10 MG TAB PO ONE (14:15)
[2020-02-15] MEDS: MIDODRINE HCL 10 MG TAB PO SCH (17:34)
--- NOTE | 2020-02-15 17:34 | NUR ---
Patient once again refused Lactulose. I once more tried to educate patient on importance of lower patient's ammonia level but patient still does not want the diarrhea that accompanies the medication as a side effect. Medication held.
--- NOTE | 2020-02-15 19:16 | NUR ---
Closing shift note Patient resting comfortably in bed eating dinner. No signs of distress and SOB. Levophed infusing at 6 mcg/min. Care endorsed to LUCIA Paredes.
--- NOTE | 2020-02-15 19:30 | NUR ---
OPENING NOTE RECEIVED REPORT AND ASSUMED CARE OF PT. PT IS RESTING IN BED. VITAL SIGNS STABLE WITH NO S/S OF DISTRESS. PT ON ROOM AIR. NO COMPLAINTS OF PAIN AT THIS TIME. DEYA UMANZOR RN TRANSLATE AND EXPLAIN TO PT CURRENT PLAN OF CARE, MEDICATIONS, SAFETY PRECAUTIONS AND TREATMENT. PT VERBALIZED UNDERSTANDING. PLACED PT ON BEDPAN. FULL LILY CHANGE AND GOWN CHANGE DONE DUE TO SHEETS BEING SOILED. LEVOPHED CURRENTLY RUNNING AT 6 MCG. WILL TITRATE PER PROTOCOL. IVS INTACT AND PATENT. WILL CONTINUE TO MONITOR AND ASSESS PT.
--- NOTE | 2020-02-15 23:55 | NUR ---
PARTIAL WOUND CARE DONE CLEANSED PROTRUDING HERNIA WITH BETADINE PER WOUND CARE RECOMMENDATION. NONADHESIVE OPTIFOAM IN PLACE WITH STOCKINETTE. PREVIOUS NON ADHESIVE OPTIFOAM REMOVED AND HAD MODERATE SEROUS DRAINAGE ON IT. PT REPORTED NO PAIN AND TOLERATED WELL. WILL CHANGE OTHER DRESSINGS PRN.
[2020-02-16] VITALS (95 sets, daily range): BP systolic 61–121; BP diastolic 40–73
--- NOTE | 2020-02-16 00:05 | NUR ---
PT PURCHASING INTERNSHIP ERNA AT BEDSIDE TO ASSIST WITH TRANSLATION WHILE ADMINISTERING MEDICATIONS. PT REFUSING LACTULOSE DESPITE EDUCATION. ALL RISKS AND BENEFITS EXPLAINED AND PT VERBALIZED UNDERSTANDING. PT WOULD LIKE TO TRY THE LACTULOSE AT A LATER TIME AND WISHES TO SLEEP AT THIS TIME. VITAL SIGNS STABLE WITH NO S/S OF DISTRESS. PT A0X4 WITH NO CONFUSION OR ALTERED MENTATION OBSERVED.
[2020-02-16 04:33] LABS: Basophils # (auto) 0.1 10 ^3/uL (0-0.2); Basophils % (auto) 0.9 % (0.0-2.0); Eosinophils # (auto) 0.3 10 ^3/uL (0-0.8); Eosinophils % (auto) 5.7 % (0.0-7.0); Hematocrit 23.6 % (41.0-53.0); Hemoglobin 8.1 g/dL (13.5-17.5); Lymphocytes # (auto) 0.5 10 ^3/uL (0.4-5.4); Lymphocytes % (auto) 9.3 % (10.0-50.0); Mean Corpuscular Hemoglobin 32.3 pg (28.0-32.0); Mean Corpuscular Hgb Conc. 34.3 g/dL (32.0-36.0); Mean Corpuscular Volume 94.2 fL (80.0-100.0); Monocytes # (auto) 0.6 10 ^3/uL (0-1.3); Monocytes % (auto) 10.1 % (0.0-12.0); Neutrophils # (auto) 4.2 10 ^3/uL (1.6-8.6); Platelet Count (auto) 161 10^3/uL (140-450); Red Cell Distribution Width 15.4 % (11.8-14.3); White Blood Cell 5.7 10^3/uL (4.4-10.8)
[2020-02-16 04:54] LABS: INR 1.2 (0.9-1.15); Partial Thromboplastin Time 31.9 sec (23.64-32.05)
[2020-02-16 04:57] LABS: Potassium 4.6 mmol/L (3.5-5.1)
[2020-02-16 05:04] LABS: Albumin 2.8 g/dL (3.4-5.0); BUN/Creatinine Ratio 26.3; Bilirubin, Total 0.6 mg/dL (0.2-1.0); Calcium 7.6 mg/dL (8.5-10.1); Magnesium 1.9 mg/dL (1.6-2.6); Phosphorus 2.4 mg/dL (2.5-4.90); Total Protein 5.5 g/dL (6.4-8.2)
[2020-02-16] MEDS: LACTULOSE 20Gm/30ML SOLN PO SCH ×4 (06:00→23:48)
--- NOTE | 2020-02-16 06:15 | NUR ---
PT REFUSED 0600 LACTULOSE. OPTIFOAM TO R UPPER CHEST CHANGED. PREVIOUS DRESSING WAS MINIMALLY SATURATED AND NEW OPTIFOAM APPLIED.
[2020-02-16] MEDS: ceFAZolin 1GM/50ML 50 ML IV SCH ×3 (06:21→21:48)
[2020-02-16] MEDS: MIDODRINE HCL 10 MG TAB PO SCH ×3 (06:22→18:30)
--- NOTE | 2020-02-16 07:26 | NUR ---
REPORT GIVEN AND CARE ENDORSED TO BRYON FRENCH RN.
[2020-02-16] MEDS: rifAXIMin 550 MG TAB PO SCH ×2 (12:28→21:48)
[2020-02-16] MEDS: PANTOPRAZOLE 40 MG TAB PO SCH (12:28)
[2020-02-16] MEDS: NOREPINEPHRINE 8 MG/250ML KIT 250 ML IV SCH (14:30)
--- NOTE | 2020-02-16 19:30 | NUR ---
OPENING NOTE RECEIVED REPORT FROM MANOLO RN AND ASSUMED CARE OF PT. PT IS RESTING IN BED ASLEEP. PT IS ON ROOM AIR WITH STABLE VITAL SIGNS AND NO S/S OF DISTRESS NOTED AT THIS TIME. LEVOPHED GTT RUNNING FOR BP SUPPORT. PT ATE 100% OF DINNER. NO COMPLAINTS OF PAIN WHEN ASKED. WILL CONTINUE TO MONITOR AND ASSESS PT.
[2020-02-17] VITALS (89 sets, daily range): BP systolic 79–112; BP diastolic 38–65
--- NOTE | 2020-02-17 04:12 | NUR ---
PT CARE WOUND CARE DONE TO RIGHT WRIST- NEW NON ADHESIVE OPTIFOAM APPLIED WITH STOCKINETTE WRAPPED AROUND IT. SACRAL OPTIFOAM REPLACED. PROTRUDING HERNIA SITE CLEANSED WITH BETADINE PER WOUND CARE RECOMMENDATION. PARTIAL LILY CHANGE AND GOWN CHANGE DONE. PT ASSISTED WITH TURNING AND TOLERATED WELL WITH NO DISTRESS.
[2020-02-17 05:08] LABS: Basophils # (auto) 0 10 ^3/uL (0-0.2); Eosinophils # (auto) 0.3 10 ^3/uL (0-0.8); Hemoglobin 8.2 g/dL (13.5-17.5)
[2020-02-17 05:10] LABS: Basophils % (auto) 0.8 % (0.0-2.0); Eosinophils % (auto) 5.5 % (0.0-7.0); Hematocrit 23.7 % (41.0-53.0); Lymphocytes # (auto) 0.6 10 ^3/uL (0.4-5.4); Lymphocytes % (auto) 11.5 % (10.0-50.0); Mean Corpuscular Hemoglobin 32.6 pg (28.0-32.0); Mean Corpuscular Hgb Conc. 34.7 g/dL (32.0-36.0); Mean Corpuscular Volume 94.2 fL (80.0-100.0); Monocytes # (auto) 0.5 10 ^3/uL (0-1.3); Monocytes % (auto) 9.5 % (0.0-12.0); Neutrophils # (auto) 3.7 10 ^3/uL (1.6-8.6); Neutrophils % (auto) 72.7 % (37.0-80.0); Platelet Count (auto) 158 10^3/uL (140-450); Red Blood Cells 2.52 10^6/uL (4.5-5.90); Red Cell Distribution Width 15.6 % (11.8-14.3); White Blood Cell 5.1 10^3/uL (4.4-10.8)
[2020-02-17 05:21] LABS: Albumin 2.7 g/dL (3.4-5.0); Calcium 7.8 mg/dL (8.5-10.1); Potassium 4.6 mmol/L (3.5-5.1)
[2020-02-17 05:25] LABS: Bilirubin, Total 0.5 mg/dL (0.2-1.0); Total Protein 5.7 g/dL (6.4-8.2)
[2020-02-17 05:31] LABS: INR 1.17 (0.9-1.15)
[2020-02-17] MEDS: LACTULOSE 20Gm/30ML SOLN PO SCH ×4 (05:42→23:38)
[2020-02-17] MEDS: ceFAZolin 1GM/50ML 50 ML IV SCH (05:42)
[2020-02-17] MEDS: MIDODRINE HCL 10 MG TAB PO SCH ×3 (05:43→18:05)
--- NOTE | 2020-02-17 05:43 | NUR ---
IV insertion IV access obtained, via clean sterile technique by inserting 22 gauge catheter at left wrist after 2 attempts. IV secured properly. No trauma to site. Patient tolerated procedure well. IV to left upper arm d/c'd due to leaking.
--- NOTE | 2020-02-17 08:05 | NUR ---
IV REMOVAL PT COMPLAINING OF PAIN AT SITE OF LEFT WRIST IV. PT REQUESTS IV TO BE TAKEN OUT. IV DC'd with clean sterile technique, catheter fully intact. Pressure dressing applied to site. Patient tolerated well. Signed: 02/17/20 at 1128 by DARLIN WEAVER <Co-Signature Required> Co-Signed: 02/17/20 at 1128 by Gardenia Granados RN
--- NOTE | 2020-02-17 08:30 | NUR ---
BM PT OOB AMBULATED TO TOILET WITH ASSISTANCE. PT DENIES FEELING DIZZY AND B/P DID NOT DROP. WILL CONTINUE TO MONITOR. Signed: 02/17/20 at 1123 by DARLIN WEAVER <Co-Signature Required> Co-Signed: 02/17/20 at 1123 by Gardenia Granados RN
[2020-02-17] MEDS ORDERED: ALBUMIN 25% 100 ML IV ONE (09:30)
[2020-02-17] MEDS: rifAXIMin 550 MG TAB PO SCH ×2 (10:12→21:59)
[2020-02-17] MEDS: MULTIPLE VITAMINS W/ MINERALS TAB PO SCH (10:13)
[2020-02-17] MEDS: THIAMINE HCL 100 MG TAB PO SCH (10:13)
[2020-02-17] MEDS: PANTOPRAZOLE 40 MG TAB PO SCH (10:13)
[2020-02-17] MEDS: FOLIC ACID 1 MG TAB PO SCH (10:13)
[2020-02-17] MEDS ORDERED: ERTAPENEM SOD INJ 1 GM in SODIUM CHL 0.9% 50 ML IV ONE (14:00)
--- NOTE | 2020-02-17 15:28 | NUR ---
Midline Placement: Patient educated on need for midline placement. All risks and benefits explained and all questions and concerns addresses prior to procedure. 20g/8cm midline inserted via left brachial vein using Ultrasound. Sterile technique utilized. Blood return obtained from lumen and flushed easily with NS using proper technique. Midline secured with saline lock; biodisc and occlusive dressing applied. Primary RN notified. Midline lot #[id number]
[2020-02-17] MEDS: NOREPINEPHRINE 8 MG/250ML KIT 250 ML IV SCH (15:45)
--- NOTE | 2020-02-17 19:30 | NUR ---
OPENING NOTE RECEIVED REPORT FROM MANOLO RN AND ASSUMED CARE OF PT. PT RESTING IN BED WITH LEVOPHED GTT STILL RUNNING TO NEWLY PLACED MIDLINE (SEE IV SPREADSHEET). VITAL SIGNS STABLE WITH NO S/S OF DISTRESS AT THIS TIME AND MENTATION APPROPRIATE. NO REPORTS OF PAIN. PT ATE 100% OF HIS DINNER AND TOLERATED WELL. WILL CONTINUE TO MONITOR AND REASSESS PT.
[2020-02-18] VITALS (93 sets, daily range): BP systolic 66–129; BP diastolic 32–81
--- NOTE | 2020-02-18 04:05 | NUR ---
WOUND CARE DONE PER WOUND CARE RECOMMENDATION TO L WRIST, RU CHEST, AND HERNIA SITE. PT TOLERATED WELL WITH NO COMPLAINTS OF PAIN. PT REQUESTS TO HAVE R FOREARM IV TAKEN OUT DUE TO LEAKING AND PAIN. IV D/C'D. CATHETER IN TACT AND MINIMAL DRAINAGE NOTED.
[2020-02-18 04:50] LABS: Basophils # (auto) 0 10 ^3/uL (0-0.2); Basophils % (auto) 0.8 % (0.0-2.0); Eosinophils # (auto) 0.2 10 ^3/uL (0-0.8); Eosinophils % (auto) 5.7 % (0.0-7.0); Hemoglobin 7.6 g/dL (13.5-17.5); Lymphocytes # (auto) 0.5 10 ^3/uL (0.4-5.4); Lymphocytes % (auto) 12.7 % (10.0-50.0); Mean Corpuscular Hemoglobin 32.7 pg (28.0-32.0); Mean Corpuscular Hgb Conc. 34.5 g/dL (32.0-36.0); Mean Corpuscular Volume 94.8 fL (80.0-100.0); Monocytes # (auto) 0.5 10 ^3/uL (0-1.3); Monocytes % (auto) 12.2 % (0.0-12.0); Neutrophils # (auto) 2.8 10 ^3/uL (1.6-8.6); Neutrophils % (auto) 68.6 % (37.0-80.0); Nucleated Red Blood Cells % 0.1 %; Platelet Count (auto) 128 10^3/uL (140-450); Red Blood Cells 2.32 10^6/uL (4.5-5.90); Red Cell Distribution Width 15.3 % (11.8-14.3)
[2020-02-18 05:20] LABS: BUN/Creatinine Ratio 43.1; Calcium 7.7 mg/dL (8.5-10.1)
[2020-02-18] MEDS: LACTULOSE 20Gm/30ML SOLN PO SCH ×3 (06:00→18:00)
[2020-02-18] MEDS: MIDODRINE HCL 10 MG TAB PO SCH ×3 (06:14→18:00)
--- NOTE | 2020-02-18 07:25 | NUR ---
REPORT REPORT RECEIVED FROM BOONE YMERS, CARE ASSUMED. PT ON TOILET WITH CALL LIGHT. INSTRUCTED TO CALL FOR ASSISTANCE BACK TO BED. PT VERBALIZED UNDERSTANDING.
--- NOTE | 2020-02-18 08:14 | NUR ---
ASCITIC FLUID DRAINAGE PT SITTING IN TOILET. LARGE AMOUNT OF CLEAR, YELLOW FLUID APPEARING OF URINE ON FLOOR SURROUNDING TOILET. FLUID DRAINING FROM UMBILICAL HERNIA. FLUID COLLECTED APPROXIMATELY 1100 CC, TOTAL FLUID LOSS 2000 CC. AREA OF SKIN ON UMBILICAL HERNIA IS OPEN, WHERE FLUID IS DRAINING. SITE CLEANSED, OSTOMY BAG PLACED OVER SITE TO CONTINUE TO COLLECT FLUID. PARTIAL LINEN AND GOWN CHANGE COMPLETE. PATIENT ASSISTED BACK TO BED AND REPOSITIONED. WILL CONTINUE TO MONITOR FLUID OUTPUT. CALL LIGHT WITHIN REACH, ALL PERSONAL BELONGINGS WITHIN REACH.
--- NOTE | 2020-02-18 09:15 | NUR ---
Ascitic Fluid Drainage Large amount of clear, yellow fluid draining from umbilical hernia. Fluid collected approximately 5,400 cc of fluid. Total fluid loss 7,550 cc. Area of surrounding skin is open to air, site cleansed, ostomy collection bag is placed over the site to collect remaining fluid. Partial linen and gown change done. Patient laying in bed. Bed in lowest position, side rails up x3, personal items and call light within reach.
--- NOTE | 2020-02-18 09:50 | NUR ---
MD VISIT AT BEDSIDE. MD AWARE OF CONTINUED DRAINAGE OF ASCITIC FLUID FROM HERNIA. MD ORDERED FOR PARACENTESIS TODAY.
[2020-02-18] MEDS: ERTAPENEM SOD INJ 1 GM in SODIUM CHL 0.9% 50 ML IV SCH (10:10)
[2020-02-18] MEDS: rifAXIMin 550 MG TAB PO SCH ×2 (10:10→21:58)
[2020-02-18] MEDS: FOLIC ACID 1 MG TAB PO SCH (10:10)
[2020-02-18] MEDS: MULTIPLE VITAMINS W/ MINERALS TAB PO SCH (10:10)
[2020-02-18] MEDS: THIAMINE HCL 100 MG TAB PO SCH (10:10)
[2020-02-18] MEDS: PANTOPRAZOLE 40 MG TAB PO SCH (10:10)
--- NOTE | 2020-02-18 11:08 | NUR ---
WOUND CARE NOTE: New wound care request received regarding hernia wound. Patient came in with scabbed wounds to Rt. abd hernia. During his stay, the scabs draining serous drainage, staff is managing drainage with collection bag. Patient would benefit with application of sure prep skin protectant to luis wound to help protect skin. RECOMMEND: Surgical consult
--- NOTE | 2020-02-18 11:55 | NUR ---
MD VISIT AT BEDSIDE ASSESSING AND SPEAKING WITH PT REGARDING PLAN OF CARE AND DISCHARGE PLAN. MD CONSULTING SOCIAL SERVICE REGARDING HOSPICE. RAMSES RN AT BEDSIDE TO TRANSLATE. PT CONSENTING TO HOSPICE AT DISCHARGE.
--- NOTE | 2020-02-18 12:15 | NUR ---
PARACENTESIS AT BEDSIDE.
[2020-02-18] MEDS ORDERED: ALBUMIN 25% 100 ML IV ONE ×2 (12:21→12:30)
--- NOTE | 2020-02-18 12:27 | NUR ---
BRADYCARDIA PT HEART RATE DECREASED TO 37 BPM. PT AWAKE, ALERT, AND DENIES DISTRESS. HEART RATE RETURNED TO 49-51. NO DISTRESS. LEVOPHED GTT INCREASED DUE TO BLOOD PRESSURE TRENDING DOWN.
--- NOTE | 2020-02-18 12:50 | NUR ---
MD RETURNED PAGE STATED HE DOES NOT WANT PARACENTESIS FLUID TESTED. APPROX 950 CC ASCITIC FLUID REMOVED. RIGHT UPPER QUADRANT SMALL HEMATOMA NOTED. DIRECTOR OF FOOD AND NUTRITION AWARE, HELD MANUAL PRESSURE, SITE WILL CONTINUED TO BE MONITORED. NOTIFIED.
--- NOTE | 2020-02-18 12:50 | NUR ---
PARACENTESIS COMPLETED - SEE VITALS FLOWSHEET FOR VITALS. PATIENT TOLERATED PROCEDURE FAIR WITH HYPOTENSION EPISODE PRIOR TO PROCEDURE - ALBUMIN GIVEN IV PER DR SANTOS ORDER. HR DECREASED TO 36-37 FOR SHORT PERIOD AND THEN REBOUNDED TO 49-50, DR SANTOS AT BEDSIDE AND AWARE. 950 ML SEB LIQ OBTAINED. PARACENTESIS SITE BLEEDING AFTER PROCEDURE - MANUAL PRESSURE HELD TO SITE X 5 MIN UNTIL STOPPED. DERMABOND APPLIED TO SITE PER DR SANTOS'S ORDER. SITE NOTED TO HAVE QUARTER SIZE HEMATOMA, MANUAL PRESSURE AGAIN APPLIED - SITE MARKED WITH SHARPIE. DR SANTOS NOTIFIED - STATES TO OBSERVE SITE-LUCIA HINES NOTIFIED.
--- NOTE | 2020-02-18 14:58 | NUR ---
Nutrition Followup Notes Pt wt is 63.4 kg. Pt was awake, with RN with curtain drawn when rounded this morning. Pt is with a 2gNA diet, appetite is good aeb 100% PO intake over 4 meals. Pt with no noted distress per RN doc. Est Energy needs: 8706-6700 kcals (35-40 kcal/kgBW) d/t pt Liver disease Est Protein needs: 67-80 gms/day (1.0-1.2 gm/kgBW) d/t pt Liver disease Will continue to monitor and reassess prn. LAB: Na 133 L, Ca 7.7 L, Alb 2.7 L GI: Pt with a daily BM per RN doc. BS: 16 mod risk. Refer to wound assessment report for full details. PES: Altered nutrition related lab values r/t current/chronic medical condition aeb elev RFT, elev Ammonia, mod hypoalbuminemia Comments Will continue to monitor PO status, skin status, pertinent labs and weight trends. Will f/u in 2-3 days. 1) Continue to closely monitor pt PO intake to meet at least 75% of meals 2) Consider a Hepatic 80g,2gNa diet 3) Continue current plan of care Additional Recommendations: Consider a daily MVI with 500mg VitC BID
[2020-02-18] MEDS: NOREPINEPHRINE 8 MG/250ML KIT 250 ML IV SCH ×2 (15:45→22:00)
--- NOTE | 2020-02-18 15:52 | NUR ---
SOCIAL SERVICE/[facility] PRINTING ESTIMATOR AT BEDSIDE ATTEMPTING TO OBTAINED FAMILY CONTACT INFORMATION. UNABLE TO REACH FAMILY MEMBER FOR DISCHARGE. KARLEY SAXENA FROM [facility] HOSPICE CONSULTING. THEY STATED UNLESS PT HAS PLEURX CATHETER TO DRAIN ASCITIC FLUID FOR COMFORT, THEY ARE UNABLE TO TAP PATIENT WHEN DISCHARGE. PAGED MD REGARDING POSSIBILITY OF PLEURX CATHETER PLACEMENT.
--- NOTE | 2020-02-18 16:00 | NUR ---
RETURNED PAGE SAID PATIENT IS NOT A CANDIDATE REGARDING PLEURX CATHETER PLACEMENT DUE TO HERNIA.
--- NOTE | 2020-02-18 17:00 | NUR ---
ERVIN PATTERSON CONTACT [phone] [place] [phone]
--- NOTE | 2020-02-18 19:08 | NUR ---
REPORT REPORT GIVEN TO TRISTIN MYERS, CARE ENDORSED.
--- NOTE | 2020-02-18 20:00 | NUR ---
OPEN ASSUMED CARE OF MALE A&O X 3. PT MOSTLY SENEGALESE SPEAKING. EDUCATION PROVIDED BY SENEGALESE SPEAKING RN. SINUS YANA 58 ON CHECKROOM CHIEF. LEVOPHED GTT INFUSING AT 4 MCG/MIN INTO L UPPER ARM MIDLINE B& P. PT ON ROOM AIR SATS 100%. R. CHEST SKIN TEAR WITH CDI DRESSING, L. FA SKIN TEAR WITH CDI DRESSING. COLOSTOMY BAGS X TWO TO ABDOMEN COVERING UMBILICAL HERNIA WITH SCABS, AND PREVIOUS PARACENTESIS PUNCTURE SITE. BOTH DRAINING SMALL AMOUNT OF CLEAR YELLOW FLUID. BOTH BAGS INTACT. OPTIFOAM GENTLE SACRAL DRESSING IN PLACE PREVENTATIVE. PILLOWS USED TO OFFLOAD BONY PROMINENCES AND MONSE LOWER EXT'S. PT DENIES PAIN. BED IN LOWEST LOCKED POSITION. SIDE RAILS UP X 2. CALL KLEIN IN REACH. PT EDUCATED TO USE CALL KLEIN PRIOR TO ATTEMPTING TO AMBULATE. PT VERBALIZES UNDERSTANDING.
--- NOTE | 2020-02-18 23:00 | NUR ---
PT ABLE TO USE URINAL. 150 ML CLEAR YELLOW URINE.
--- NOTE | 2020-02-18 23:50 | NUR ---
REPORT RECEIVED FROM TRISTIN MYERS AND ASSUMED CARE.
[2020-02-19] VITALS (88 sets, daily range): BP systolic 75–170; BP diastolic 36–80
[2020-02-19] MEDS: LACTULOSE 20Gm/30ML SOLN PO SCH ×4 (06:00→18:00)
--- NOTE | 2020-02-19 06:15 | NUR ---
Patient bathe/linen change Patient given complete bath. Skin integrity assessed for any changes. Linens changed. Patient repositioned for comfort.
--- NOTE | 2020-02-19 06:30 | NUR ---
PATIENT REFUSED LACTULOSE PATIENT REFUSED 0000 AND 0600 LACTULOSE DOSE. PATIENT SAID THAT HE IS HAVING MANY LOOSE STOOL AND HE CAN'T TOLERATE ANYMORE THAT MEDICINE.
[2020-02-19] MEDS: MIDODRINE HCL 10 MG TAB PO SCH ×3 (06:58→18:58)
--- NOTE | 2020-02-19 08:00 | NUR ---
Opening Shift Note Assumed care of patient, awake and alert. No S/S of distress/SOB or pain. See interventions for complete assessment. Bed locked on low position, side rails up x2, bed alarms on at all times, call patel within reach, instructed on POC and to call for assist PRN, will continue to monitor for changes Q1hr and PRN.
--- NOTE | 2020-02-19 09:11 | NUR ---
Assessment Batch Or Continuous Still Operator spoke with pt per initial assessment. Pt is a 64 yr old cypriot speaking male admitted for acute kidney failure, liver cirrhosis. He has a hx of alcoholism for decades, he states he recently quit drinking in January. Pt was a/a/ox3, cannot recall any phone numbers or addresses for family. Pt resides with a friend in [place], does not have any contact information. Pt has a brother Cj in [place], the number [phone] listed for Cj is incorrect. Pt does not have any children. He does not have an ahcd, declined ahcd information. Pt does not have a pcp. Pt agrees to hospice post dc with family or with friend in [place], pt is currently self pay, pending [facility] visit. [facility] was notified, they will meet with pt after pt meets with [facility]. SS to continue to monitor pt for dc needs. Addendum: 02/19/20 at 0917 by PIPER EVANS SS Amended: Links added.
[2020-02-19] MEDS: rifAXIMin 550 MG TAB PO SCH ×2 (09:38→22:00)
[2020-02-19] MEDS: ERTAPENEM SOD INJ 1 GM in SODIUM CHL 0.9% 50 ML IV SCH (09:38)
[2020-02-19] MEDS: THIAMINE HCL 100 MG TAB PO SCH (09:38)
[2020-02-19] MEDS: FOLIC ACID 1 MG TAB PO SCH (09:39)
[2020-02-19] MEDS: PANTOPRAZOLE 40 MG TAB PO SCH (09:39)
[2020-02-19] MEDS: MULTIPLE VITAMINS W/ MINERALS TAB PO SCH (09:39)
--- NOTE | 2020-02-19 10:24 | NUR ---
Dr Goodman at bedside, updated on patient's status. Patient seen and examined. Received order for Cardiology Consult to Dr Fernandez. Orders read back and verified. Dr Fernandez informed of the consult.
--- NOTE | 2020-02-19 10:30 | NUR ---
Dr Fernandez at bedside, updated on patient's status. Patient seen and examined. Will carry out new orders.
--- NOTE | 2020-02-19 18:59 | NUR ---
Patient refused Lactulose stating " No, too much poop."
[2020-02-20] VITALS (77 sets, daily range): BP systolic 76–126; BP diastolic 43–69
[2020-02-20 05:26] LABS: Basophils # (auto) 0.1 10 ^3/uL (0-0.2); Eosinophils # (auto) 0.3 10 ^3/uL (0-0.8); Eosinophils % (auto) 5.1 % (0.0-7.0); Hemoglobin 9.6 g/dL (13.5-17.5); Lymphocytes # (auto) 0.8 10 ^3/uL (0.4-5.4); Lymphocytes % (auto) 12.8 % (10.0-50.0); Mean Corpuscular Hemoglobin 32.5 pg (28.0-32.0); Mean Corpuscular Hgb Conc. 34.2 g/dL (32.0-36.0); Monocytes # (auto) 0.7 10 ^3/uL (0-1.3); Monocytes % (auto) 11.8 % (0.0-12.0); Neutrophils # (auto) 4.4 10 ^3/uL (1.6-8.6); Neutrophils % (auto) 69.3 % (37.0-80.0); Nucleated Red Blood Cells % 0.1 %; Platelet Count (auto) 194 10^3/uL (140-450); Red Blood Cells 2.95 10^6/uL (4.5-5.90); Red Cell Distribution Width 15.9 % (11.8-14.3); White Blood Cell 6.3 10^3/uL (4.4-10.8)
[2020-02-20] MEDS: MIDODRINE HCL 10 MG TAB PO SCH ×3 (05:37→18:00)
[2020-02-20 05:45] LABS: Albumin 2.7 g/dL (3.4-5.0); Potassium 5.4 mmol/L (3.5-5.1)
[2020-02-20 05:48] LABS: BUN/Creatinine Ratio 42.3; Bilirubin, Total 0.6 mg/dL (0.2-1.0); Total Protein 5.8 g/dL (6.4-8.2)
[2020-02-20] MEDS: LACTULOSE 20Gm/30ML SOLN PO SCH ×4 (05:52→18:00)
[2020-02-20] MEDS: FOLIC ACID 1 MG TAB PO SCH (09:48)
[2020-02-20] MEDS: PANTOPRAZOLE 40 MG TAB PO SCH (09:48)
[2020-02-20] MEDS: MULTIPLE VITAMINS W/ MINERALS TAB PO SCH (09:48)
[2020-02-20] MEDS: THIAMINE HCL 100 MG TAB PO SCH (09:48)
[2020-02-20] MEDS: rifAXIMin 550 MG TAB PO SCH ×2 (09:50→21:55)
[2020-02-20] MEDS: ERTAPENEM SOD INJ 1 GM in SODIUM CHL 0.9% 50 ML IV SCH (09:57)
--- NOTE | 2020-02-20 12:00 | NUR ---
BM/COMFORT/PATIENT REFUSED LACTULOSE [PATIENT CLEANSED OF MODERATE SOFT/BROWN STOOL AFTER USING BEDPAN. PATIENT TOLERATED WELL, ABLE TO HELP THIS NURSE WITH TURNING SELF. PATIENT REFUSING LACTULOSE AT THIS TIME, PATIENT EDUCATED ON NEED FOR LACTULOSE AND CURRENT AMMONIA LEVEL. THIS NURSE NOTIFIED PATIENT THAT HE WOULD HAVE ANOTHER DUE AT 1800 AND HE STATED "I WILL TAKE THAT ONE".
--- NOTE | 2020-02-20 13:32 | NUR ---
HOSPITALIST AT BEDSIDE DR FERNÁNDEZ UPDATED ON PATIENT'S STATUS AND DRIPS VS AND DECREASED HEART RATE. DR FERNÁNDEZ EVALUATED PATIENT AT BEDSIDE, ORDERED LEVOPHED TO BE HELD FOR NOW AND MONITOR BLOOD PRESSURE. IF PATIENT'S BLOOD PRESSURE REMAINS STABLE, THEN PATIENT CAN BE DOWNGRADED TO TELE.
[2020-02-20] MEDS: NOREPINEPHRINE 8 MG/250ML KIT 250 ML IV SCH (15:05)
--- NOTE | 2020-02-20 15:12 | NUR ---
CONTACT HOSPITALIST DR FERNÁNDEZ AWARE OF NEED TO RESTART LEVOPHED SECONDARY TO PATIENT'S SBP IN THE 70'S. DR FERNÁNDEZ VERBALIZED UNDERSTANDING AND ORDERED ALBUMIN 25%/100 MLS. ORDER WILL BE CARRIED OUT.
[2020-02-20] MEDS ORDERED: ALBUMIN 25% 100 ML IV ONE (15:15)
--- NOTE | 2020-02-20 18:00 | NUR ---
PATIENT REFUSING LACTULOSE PATIENT EDUCATED ON USE AND REASON FOR MD ORDERING. PATIENT VERBALIZED UNDERSTANDING.
--- NOTE | 2020-02-20 19:20 | NUR ---
END OF SHIFT NOTE PATIENT RESTING IN BED, ALERT AND ORIENTED X4, NO DISTRESS NOTED, RESPIRATIONS EVEN AND UNLABORED, ON ROOM AIR. PATIENT DENIES PAIN OR DISCOMFORT DURING SHIFT. PATIENT REFUSED LACTULOSE DURING AM SHIFT. PATIENT HAD A TOTAL OF 3 BOWEL MOVEMENTS SOFT BROWN, COMFORT MEASURES PROVIDED. FALL AND SAFETY PRECAUTIONS IN PLACE, ENDORSED CONTINUED CARE TO DOCK ASSOCIATE RN.
--- NOTE | 2020-02-20 20:00 | NUR ---
RECIEVED PT AWAKE AND ALERT, PLEASANT AND COOPERATIVE, DENIES ANY DISCOMFORT AT THIS TIME, USES URINAL TO VOID, ABDOMEN WITH 2 COLOSTOMY BAGS RIGHT AND LEFT ABD OVER PUNCTURE SITES, SCANT SEROUS FLUID, REMAINS ON LEVOPHED GTT AT 4CG/MIN, NO OTHER CHANGES, SEE INTERVENTIONS FOR HEAD TO TOE ASSESSMENT AND VITAL SIGNS
[2020-02-21] VITALS (80 sets, daily range): BP systolic 69–136; BP diastolic 35–82
--- NOTE | 2020-02-21 | NUR ---
PT REFUSED LACTULOSE, PLACED ON BEDPAN, NO BM JUST "GAS
--- NOTE | 2020-02-21 04:00 | NUR ---
PT USES URINAL TO VOID, PLACED ON BEDPAN AND EXPELLED LARGE SOFT BROWN BM, PT REPOSITIONED IN BED, LINENS STRAIGHTENED OUT, PT DOES TURN AND HELP WITH ACTIVITY
[2020-02-21 04:38] LABS: Basophils # (auto) 0.1 10 ^3/uL (0-0.2); Eosinophils # (auto) 0.3 10 ^3/uL (0-0.8); Eosinophils % (auto) 4.9 % (0.0-7.0); Hematocrit 25.5 % (41.0-53.0); Hemoglobin 8.8 g/dL (13.5-17.5); Lymphocytes # (auto) 0.7 10 ^3/uL (0.4-5.4); Lymphocytes % (auto) 12.4 % (10.0-50.0); Mean Corpuscular Hemoglobin 32.8 pg (28.0-32.0); Mean Corpuscular Hgb Conc. 34.4 g/dL (32.0-36.0); Mean Corpuscular Volume 95.4 fL (80.0-100.0); Monocytes # (auto) 0.7 10 ^3/uL (0-1.3); Monocytes % (auto) 11.1 % (0.0-12.0); Neutrophils # (auto) 4.1 10 ^3/uL (1.6-8.6); Neutrophils % (auto) 70.6 % (37.0-80.0); Nucleated Red Blood Cells % 0.1 %; Platelet Count (auto) 192 10^3/uL (140-450); Red Blood Cells 2.67 10^6/uL (4.5-5.90); Red Cell Distribution Width 15.7 % (11.8-14.3); White Blood Cell 5.9 10^3/uL (4.4-10.8)
[2020-02-21 04:58] LABS: BUN/Creatinine Ratio 43.4; Calcium 8.1 mg/dL (8.5-10.1)
[2020-02-21 05:00] LABS: Potassium 5.7 mmol/L (3.5-5.1)
--- NOTE | 2020-02-21 05:56 | NUR ---
PT REMAINS ON LEVOPHED 4MCG/MIN, BP DROPS OCCATIONALLY THEN RECOVERS WITHOUT TITRATION, SINUS YANA 49-60'S, NO OTHER CHANGES
[2020-02-21] MEDS: LACTULOSE 20Gm/30ML SOLN PO SCH ×5 (06:00→18:00)
[2020-02-21] MEDS: MIDODRINE HCL 10 MG TAB PO SCH ×3 (06:18→17:57)
--- NOTE | 2020-02-21 07:29 | NUR ---
PAGED DR. ANGELES REGARDING PT'S HYPERKALEMIA, LEFT A MESSAGE WITH ANSWERING SERVICE [employer].
--- NOTE | 2020-02-21 08:00 | NUR ---
AM ASSESSMENT COMPLETED ALERT ORIENTED. DENIES ANY CP OR S.O.B EDUCATED ON POC, PT VERBALIZED UNDERSTANDING. PT HAS ASCITIS FROM LIVER CIRRHOSIS, HAS TWO COLOSTOMY POUCHES ON BOTH SIDES OF ABDOMEN TO DRAIN SEROUS FLUID. MINIMAL FLUID DRAINING. PT IS HYPERKALEMIC, PAGED. AWAITING FOR MD TO CALL BACK.
--- NOTE | 2020-02-21 08:11 | NUR ---
[address] ANGELES HE HAS NOT RETURNED PAGE. THIS TIME LEFT A MESSAGE WITH ANSWERING SERVICE [employer].
[2020-02-21] MEDS ORDERED: FUROSEMIDE 40 MG/4 ML VIAL IV ONE (08:30)
[2020-02-21] MEDS ORDERED: DEXTROSE (50%) 50ML SYRG IV ONE (08:30)
[2020-02-21] MEDS ORDERED: InsuLIN REG 1unit/0.01ml Soln (100units/ml) SC ONE (08:30)
--- NOTE | 2020-02-21 08:55 | NUR ---
I NOTIFIED DR. CARDENAS OF K 5.7 , RECEIVED ORDERS LOCALEMIA TID. AND TO RECHECK BMP IN AM.
[2020-02-21] MEDS ORDERED: SODIUM ZIRCONIUM CYCL 10 GM PAK PO SCH (09:00)
--- NOTE | 2020-02-21 09:10 | NUR ---
ORDERS RECEIVED IN [facility] FROM DR. ANGELES TO TREAT HYPERKALEMIA OF 5.7 10 UNITS OF INSULIN SC 50 % DEXTROSE 25 MG IVP AND 40 MG OF LASIX IVP AND PREVIOUS ORDERS FOR LOKELMA FROM DR CARDENAS WERE DISCONTINUED BY . ORDERS CARRIED OUT ORDERED BY . PT WAS VERY SENSITIVE TO LASIX IVP SLOWLY, HR SLOWED DOWN WHILE IV MEDS WERE BEING PUSHED SLOWLY. PT'S LEVOPHED HAD TO BE PAUSED TEMPORARILY SINCE PT ONLY HAD ONE IV ACCESS. HR DECREASED TO THE LOW 30'S, BP DECREASED TO THE 60'S. PT REMAINED ALERT AND ORIENTED THROUGH OUT ALL THE IVP MEDICATIONS, MEDS PUSHED SLOWLY OVER 10 MIN. LEVOPHED THEN TITRATED UP BY 2 LEONARDO/MIN TO MAINTAIN SBP HIGHER THAN 90 ONCE PT STARTS DIURESING. EDUCATED PT ON WHAT TO EXPECT IN [place]. PT VERBALIZED UNDERSTANDING.
--- NOTE | 2020-02-21 09:30 | NUR ---
BP 73/35 S/P LASIX IVP. PT WILL CONTINUE TO DIURESE, PT HYPERKALEMIC. SEE E-MAR AND IV FLOW SHEET FOR LEVOPHED TITRATION.
[2020-02-21] MEDS: MULTIPLE VITAMINS W/ MINERALS TAB PO SCH (10:36)
[2020-02-21] MEDS: rifAXIMin 550 MG TAB PO SCH ×2 (10:36→22:00)
[2020-02-21] MEDS: FOLIC ACID 1 MG TAB PO SCH (10:37)
[2020-02-21] MEDS: PANTOPRAZOLE 40 MG TAB PO SCH (10:38)
[2020-02-21] MEDS: THIAMINE HCL 100 MG TAB PO SCH (10:39)
[2020-02-21] MEDS: ERTAPENEM SOD INJ 1 GM in SODIUM CHL 0.9% 50 ML IV SCH (11:02)
--- NOTE | 2020-02-21 14:19 | NUR ---
COMPLETE BED BATH GIVEN, PT HAD A MEDIUM SOFT PASTY BM , BUT HAD AN EXTRA LARGE URINE ON BED LOPEZ THAT SPILLED ALL OVER BED. THIS IS PT'S SECOND UOP S/P LASIX ADMINISTRATION FROM THIS AM.
--- NOTE | 2020-02-21 14:55 | NUR ---
DR. QUINTERO ROUNDING ON PT. NO NEW ORDERS RECEIVED. CODE STATUS DISCUSSED WITH PT. PT STILL WANTS TO REMAIN FULL CODE. PT WAS ASKING MD. WHEN WOULD HE GO HOME. PT STILL ON LEVOPHED AT 8 MCG/MIN. PT DIURESING FROM LASIX THAT WAS ORDER BY DR. ANGELES.
--- NOTE | 2020-02-21 16:04 | NUR ---
DR MCMILLAN ROUNDMELO ON PT. UPDATED ON PT'S CONDITION UPDATED ON PT NOT TAKEN LACTULOSE BEFORE, BUT HE DID TAKE IT AT NOON AFTER , EXPLAINING TO HIM THAT IS THE REASON WHY HIS K IS ELEVATED. PT HAS BEEN REFUSING TO TAKE LACTULOSE.
[2020-02-21] MEDS: NOREPINEPHRINE 8 MG/250ML KIT 250 ML IV SCH (16:15)
--- NOTE | 2020-02-21 18:09 | NUR ---
PT REFUSED TO TAKE LACTULOSE, STATES IT CAUSES HIM SEVERE CRAMPING AND DIARRHEA THAT DOES NOT ALLOW HIM TO SLEEP. HE UNDERSTANDS THAT HE CAN HAVE HYPERKALEMIA AND HEART IRREGULARITIES BUT HE STILL REFUSING, HE STATES THAT " I CAN EXPLAIN THAT TO THE DOCTOR" . HE DID NOT ADDRESS ANY OF THIS ISSUES TO MD WHEN THEY ROUNDED AND HE DID TAKE THE NOON LACTULOSE. PT DID HAVE A MEDIUM SOFT BM TODAY.
--- NOTE | 2020-02-21 19:30 | NUR ---
REPORT RECEIVED AND ASSUMED CARE; SEE INTERVENTIONS FOR ASSESSMENT; VS STABLE AT THIS TIME WHILE ON LEVOPHED GTT; PT. ON ROOM AIR AND A&O X4; PT. IS VERY PLEASANT AND LAYING BED RESTING; WILL CONT. TO MONITOR.
[2020-02-22] VITALS (91 sets, daily range): BP systolic 73–130; BP diastolic 30–79
--- NOTE | 2020-02-22 | NUR ---
PT. REFUSED LACTULOSE; 'S AWARE.
--- NOTE | 2020-02-22 01:56 | NUR ---
PT. HAD A MODERATE, SOFT, FORMED, YELLOW/BROWN BM; DYLON-CARE AND PARTIAL LINEN CHANGE PROVIDED; PT. TOLERATED WELL; WILL CONT. TO MONITOR.
[2020-02-22 04:44] LABS: BUN/Creatinine Ratio 40.5; Potassium 4.9 mmol/L (3.5-5.1)
[2020-02-22] MEDS: LACTULOSE 20Gm/30ML SOLN PO SCH ×4 (06:00→18:00)
[2020-02-22] MEDS: MIDODRINE HCL 10 MG TAB PO SCH ×3 (06:00→18:35)
--- NOTE | 2020-02-22 08:15 | NUR ---
AM ASSESSMENT COMPLETED REMAINS IN ICU D/T HYPOTENSION D/T LIVER CIRRHOSIS WITH ASCEITIS. DENIES ANY S.O.B AT THIS TIME, CURRENTLY ON RA , LS CTA. BED REST D/T HYPOTENSION. INCONTINENT OF URINE WITH BM, PT HAS TWO COLOSTOMY BAGS COLLECTING ASCEITIS FLUID FROM PROTRUDING UMBILICAL HERNIA AND PREVIOUS PUNCTURE PARACENTESIS SITE, MINIMAL DRAINAGE COMING OUT. EDUCATED PT ON POC. PT VERBALIZED UNDERSTANDING.
--- NOTE | 2020-02-22 08:30 | NUR ---
DR. BRIDGETTE ROUNDING ON PT. NO NEW ORDERS RECEIVED.
[2020-02-22] MEDS: ERTAPENEM SOD INJ 1 GM in SODIUM CHL 0.9% 50 ML IV SCH (10:13)
[2020-02-22] MEDS: PANTOPRAZOLE 40 MG TAB PO SCH (10:14)
[2020-02-22] MEDS: rifAXIMin 550 MG TAB PO SCH ×2 (10:14→21:45)
[2020-02-22] MEDS: FOLIC ACID 1 MG TAB PO SCH (10:14)
[2020-02-22] MEDS: MULTIPLE VITAMINS W/ MINERALS TAB PO SCH (10:14)
[2020-02-22] MEDS: THIAMINE HCL 100 MG TAB PO SCH (10:14)
--- NOTE | 2020-02-22 10:15 | NUR ---
WOUND CARE NOTE: IN TO SEE PATIENT AT THIS TIME FOR SKIN INTEGRITY. PATIENT CONTINUES TO REST ON LOW AIRLOSS ICU BED, CURRENT ISSAC SCORE IS 15. PATIENT CAN SELF TURN, WITH MINIMAL ASSISTANCE BY STAFF. PATIENT OBTAINED A SKIN TEAR TO THE LEFT FOREARM WHEN IV WAS REMOVED PER PATIENT STATEMENT. WOUND BED IS RED, WITH PINK PERIWOUND. LIGHT SANGUINOUS DRAINAGE NOTED. APPLIED THERAHONEY GEL, NON STICK OIL EMULSION, OPTIFOAM GENTLE DRESSING TO WOUND. PATIENT'S ABDOMINAL PUNCTURE WOUNDS ARE DRAINING HIGH LEVELS OF STRAW COLORED DRAINAGE. TWO ILEOSTOMY APPLIANCES IN PLACE. LEFT APPLIANCES IN PLACE AT THIS TIME. PATIENT TURNED TO LEFT SIDE. HE IS VERY THIN, WEIGHING ONLY 53 KG. PATIENT'S BONY PROMINENCES ARE VERY PRONOUNCED, ESPECIALLY THE COCCYX. SKIN REMAINS BLANCHABLE. OPTIFOAM GENTLE SACRAL DRESSING PLACED PREVENTATIVE. RECOMMEND: CONTINUATION WITH OSTOMY APPLIANCES TO ABDOMEN UNTIL HIGH OUTPUT DRAINAGE SUBSIDES, TRANSFER PATIENT TO AIR MATTRESS IF PATIENT GOES TO [facility] OR MED/SURG-TELE UNIT, CONTINUATION WITH ALL WOUND CARE ORDERS PREVIOUSLY PRESCRIBED BY MD. WOUND CARE TEAM WILL CONTINUE TO MONITOR. Addendum: 02/22/20 at 1340 by Silvana Figueroa RN Amended: Links added.
--- NOTE | 2020-02-22 10:38 | NUR ---
WOUND CARE IN TO ASSESS PT. ASSISTED WIT H WOUND CARE. REPOSITIONED PT TO HIS LT SIDE.
--- NOTE | 2020-02-22 10:52 | NUR ---
Nutrition Followup Notes Pt wt is 53.0 kg. Pt was sleeping with no family by bedside. Pt appetite is good aeb pt with adequate po intake of 100%x 3 02/20 per RN note. Est Energy needs: 3402-4573 kcals (35-40 kcal/kgBW) d/t pt Liver disease Est Protein needs: 67-80 gms/day (1.0-1.2 gm/kgBW) d/t pt Liver disease Will continue to monitor and reassess prn. LAB: BUN 53H, Creat 1.31H, Ca 8.0L, Alb 2.7L GI: Pt with 3 BMs 02/20 RN doc. BS: 15 mod risk. Refer to wound assessment report for full details. PES: Altered nutrition related lab values r/t current/chronic medical condition aeb elev RFT, elev Ammonia, mod hypoalbuminemia Comments Will continue to monitor PO status, skin status, pertinent labs and weight trends. Will f/u in 3-5 days. 1) Continue to closely monitor pt PO intake to meet at least 75% of meals 2) Consider a Hepatic 80g,2gNa diet 3) Continue current plan of care Additional Recommendations: Consider a daily MVI with 500mg VitC BID
[2020-02-22] MEDS: ALBUMIN 25% 100 ML IV SCH ×2 (11:56→12:57)
--- NOTE | 2020-02-22 12:00 | NUR ---
DR. CAMACHO ROUNDING ON PT HE ORDER ALBUMIN TO SEE IF PT CAN BE TITRATED OFF ALBUMIN. MD AWARE THAT PT WANT TO BE FULL CODE. HE ASKED PT ABOUT CODE STATUS AND HE WANTS EVERYTHING DONE. PT ON MIDODRINE TO IMPROVE HYPOTENSION. STILL. PT CAN'T BE WEANED OFF LEVO. SEE IV FLOW SHEET.
--- NOTE | 2020-02-22 12:00 | NUR ---
DR. CARDENAS ROUNDING ON PT. NO NEW ORDERS RECEIVED. PT REFUSED LACTULOSE, ALL MD'S AWARE.
[2020-02-22] MEDS: NOREPINEPHRINE 8 MG/250ML KIT 250 ML IV SCH (14:25)
--- NOTE | 2020-02-22 18:00 | NUR ---
EACH TIME LEVO IS TITRATED DOWN BP GOES DOWN AND IT NEED TO BE TITRATED BACK UP. PT NOW ON 9 MCG/MIN OF LEVOPHED. ALBUMIN DID NOT HELP. PT STILL REFUSING LACTULOSE. DR. CAMACHO IS AWARE AND HE IS OKAY LONG PT TAKES RIMFAMPIN FOR HIS LIVER CIRRHOSIS.
--- NOTE | 2020-02-22 21:00 | NUR ---
TRANSFER PATIENT IS TRANSFERRED TO [facility] LAT[facility] OPERATOR ROOM 4 ICU OVER FLOW.
[2020-02-23] VITALS (61 sets, daily range): BP systolic 65–127; BP diastolic 39–74
[2020-02-23 05:54] LABS: BUN/Creatinine Ratio 41.4; Calcium 8.2 mg/dL (8.5-10.1); Potassium 4.8 mmol/L (3.5-5.1)
[2020-02-23] MEDS: LACTULOSE 20Gm/30ML SOLN PO SCH ×4 (06:00→18:50)
[2020-02-23] MEDS: MIDODRINE HCL 10 MG TAB PO SCH ×3 (06:15→18:51)
--- NOTE | 2020-02-23 06:25 | NUR ---
PATIENT REFUSED MEDS PATIENT REFUSED LACTULOSE 0000 DOSE AND 0600 DOSE. HOSPITALIST AWARE.
--- NOTE | 2020-02-23 07:05 | NUR ---
REPORT IS GIVEN TO DEJA MYERS.
--- NOTE | 2020-02-23 07:11 | NUR ---
Report received from fast food shift supervisor rn
[2020-02-23] MEDS: NOREPINEPHRINE 8 MG/250ML KIT 250 ML IV SCH (07:35)
--- NOTE | 2020-02-23 08:34 | NUR ---
patient provided with breakfast tray
[2020-02-23] MEDS: ERTAPENEM SOD INJ 1 GM in SODIUM CHL 0.9% 50 ML IV SCH (09:42)
[2020-02-23] MEDS: MULTIPLE VITAMINS W/ MINERALS TAB PO SCH (09:43)
[2020-02-23] MEDS: THIAMINE HCL 100 MG TAB PO SCH (09:43)
[2020-02-23] MEDS: rifAXIMin 550 MG TAB PO SCH ×2 (09:43→21:30)
[2020-02-23] MEDS: PANTOPRAZOLE 40 MG TAB PO SCH (09:43)
[2020-02-23] MEDS: FOLIC ACID 1 MG TAB PO SCH (09:43)
--- NOTE | 2020-02-23 10:45 | NUR ---
large brown bowel movement patient cleansed and partial linen change performed.
--- NOTE | 2020-02-23 11:39 | NUR ---
DR. CAMACHO AT BEDSIDE
--- NOTE | 2020-02-23 12:04 | NUR ---
DR. FERNÁNDEZ AT BEDSIDE
[2020-02-23] MEDS ORDERED: NOREPINEPHRINE 8 MG/250ML KIT 250 ML IV SCH (12:15)
--- NOTE | 2020-02-23 13:11 | NUR ---
PATIENT PROVIDED WITH LUNCH TRAY
--- NOTE | 2020-02-23 13:58 | NUR ---
PATIENT RESTING NO S/S OF DISTRESS NOTED.
--- NOTE | 2020-02-23 14:25 | NUR ---
PATIENT RESTING NO DISTRESS NOTED. PATIENT EASILY AROUSABLE
--- NOTE | 2020-02-23 16:43 | NUR ---
REPORT GIVEN TO JANET MYERS TO ASSUME CARE
--- NOTE | 2020-02-23 17:02 | NUR ---
PATIENT TRANSFERRED TO ROOM 283 VIA ACLS GUIDELINES AND ALL PATIENT BELONGINGS. LUCIA GONZALES AT BEDSIDE
--- NOTE | 2020-02-23 17:15 | NUR ---
Report received from RN
--- NOTE | 2020-02-23 17:20 | NUR ---
Patient is alert and orientedx4, no c/o pain no s/s of distress.sob noted/stated. VS BP 100/54, HR 60,RR16,spo2 100%. Bed at lowest locked position and call light within reach. Will continue to monitor.
--- NOTE | 2020-02-23 19:10 | NUR ---
Care endorsed to EDDA Haas
--- NOTE | 2020-02-23 19:15 | NUR ---
Opening note Assumed care of patient. Patient alert and orientated x4. No sob or distress noted. Patient is resting in bed. chest evenly rising. POC reviewed. Bed locked in lowest position, side rails up x2. Will continue to monitor patient.
[2020-02-24] VITALS (7 sets, daily range): BP systolic 91–113; BP diastolic 45–55
--- NOTE | 2020-02-24 | NUR ---
refused lactolose Patient refused lactolose. Educated patient on the importance of taking his medication. Patient verbalized understanding. Patient still refused med. He said he will take his 0600 dose. Will continue to monitor.
--- NOTE | 2020-02-24 00:05 | NUR ---
Blood pressure Took patients blood pressure. 85/52. Patient shows no signs or symptoms of distress. Patient is asymptomatic. Will continue to monitor.
--- NOTE | 2020-02-24 01:00 | NUR ---
bowel movement Patient used the bedpan. Moderate bowel movement. Brown. soft. Will continue to monitor.
--- NOTE | 2020-02-24 02:30 | NUR ---
Blood pressure. Checked patients blood pressure. 91/45. Patient states no SOB or pain. No distress noted. Will continue to monitor.
--- NOTE | 2020-02-24 04:39 | NUR ---
bowel movement Patient had another bowel movement. Moderate in size. Brown. Patient has no complaints at this time. Will continue to monitor.
[2020-02-24] MEDS: MIDODRINE HCL 10 MG TAB PO SCH ×3 (05:05→17:29)
[2020-02-24] MEDS: LACTULOSE 20Gm/30ML SOLN PO SCH ×4 (06:00→17:28)
[2020-02-24 06:16] LABS: Basophils # (auto) 0 10 ^3/uL (0-0.2); Basophils % (auto) 0.7 % (0.0-2.0); Eosinophils # (auto) 0.2 10 ^3/uL (0-0.8); Hematocrit 22.9 % (41.0-53.0); Hemoglobin 7.9 g/dL (13.5-17.5); Lymphocytes # (auto) 0.3 10 ^3/uL (0.4-5.4); Lymphocytes % (auto) 6.4 % (10.0-50.0); Mean Corpuscular Hgb Conc. 34.6 g/dL (32.0-36.0); Mean Corpuscular Volume 95.3 fL (80.0-100.0); Monocytes # (auto) 0.4 10 ^3/uL (0-1.3); Monocytes % (auto) 7.5 % (0.0-12.0); Neutrophils # (auto) 4.1 10 ^3/uL (1.6-8.6); Neutrophils % (auto) 81.4 % (37.0-80.0); Platelet Count (auto) 120 10^3/uL (140-450); Red Cell Distribution Width 15.7 % (11.8-14.3); White Blood Cell 5.1 10^3/uL (4.4-10.8)
--- NOTE | 2020-02-24 06:18 | NUR ---
Patient refusing lactulose Patient is refusing lactulose. He states he will take the next dose. Educated patient on the importance of taking his medications. Patient verbalized understanding. Patient states the medication makes him dizzy and gives him cramps. Educated patient once again. Patient still does not want to take his lactulose. Will continue to monitor.
[2020-02-24 06:32] LABS: BUN/Creatinine Ratio 38.3; Calcium 8.1 mg/dL (8.5-10.1); Potassium 4.7 mmol/L (3.5-5.1)
--- NOTE | 2020-02-24 07:25 | NUR ---
Closing note Endorsed care to day shift RN. Patient is resting in bed. Chest evenly rising no SOB or distress noted.
--- NOTE | 2020-02-24 09:30 | NUR ---
Called pharmacy for INVANZ none in pyxsis drawers, checks both draws and fridge.
[2020-02-24] MEDS: FOLIC ACID 1 MG TAB PO SCH (10:12)
[2020-02-24] MEDS: PANTOPRAZOLE 40 MG TAB PO SCH (10:13)
[2020-02-24] MEDS: MULTIPLE VITAMINS W/ MINERALS TAB PO SCH (10:13)
[2020-02-24] MEDS: rifAXIMin 550 MG TAB PO SCH ×2 (10:13→22:03)
[2020-02-24] MEDS: THIAMINE HCL 100 MG TAB PO SCH (10:13)
[2020-02-24] MEDS: ERTAPENEM SOD INJ 1 GM in SODIUM CHL 0.9% 50 ML IV SCH (10:33)
--- NOTE | 2020-02-24 15:27 | NUR ---
Patient states family wont be home until later, I asked if 6-7 is ok, patient stated that would be ok.
--- NOTE | 2020-02-24 16:02 | NUR ---
Per Dr. Freire hold patient DC. Patient states that he does not have anyone to be home until tomorrow to open house.
[2020-02-24] MEDS: OCTREOTIDE ACETATE 100 MCG/ML VL SUBCUT SCH ×2 (16:43→22:00)
--- NOTE | 2020-02-24 18:08 | NUR ---
Patient refused left forearm dressing change, and sacral optifoam dsg change. He did allow me to change the right upper chest.
--- NOTE | 2020-02-24 19:15 | NUR ---
Opening note Assumed care of patient. Patient alert and orientated x4. No sob or distress noted. Patient is resting in bed POC discussed. Patient states he lives at home with a family that he rents a room to in [place]. Patient verbalized possible discharge tomorrow. Bed locked in lowest position. Side rails up x2. Will continue to monitor.
--- NOTE | 2020-02-24 22:00 | NUR ---
Patient refusing Medication Patient refusing Sandstatin. Patient states he already took that medication earlier. He will retake in the morning. Will continue to monitor.
--- NOTE | 2020-02-25 | NUR ---
Pt refusing Lactulose Patient is refusing Lactulose. Patient states he does not like that it makes him go restroom. He reports no diarrhea.
[2020-02-25] MEDS: LACTULOSE 20Gm/30ML SOLN PO SCH ×3 (05:03→12:00)
[2020-02-25] MEDS: OCTREOTIDE ACETATE 100 MCG/ML VL SUBCUT SCH ×2 (05:03→12:34)
[2020-02-25] MEDS: MIDODRINE HCL 10 MG TAB PO SCH ×2 (05:05→12:00)
[2020-02-25 05:44] VITALS: BP 112/48
[2020-02-25 07:05] LABS: Potassium 4.8 mmol/L (3.5-5.1)
[2020-02-25 07:26] LABS: Albumin 2.9 g/dL (3.4-5.0); BUN/Creatinine Ratio 33.3; Bilirubin, Total 0.4 mg/dL (0.2-1.0); Calcium 8.3 mg/dL (8.5-10.1); Phosphorus 4.5 mg/dL (2.5-4.90)
--- NOTE | 2020-02-25 07:35 | NUR ---
CLosing note Endorsed care to day shift RN.
--- NOTE | 2020-02-25 07:44 | NUR ---
OPENING SHIFT NOTE Assumed care of patient. Patient is alert and orientated x4. Armenian speaking. No sob or distress noted. POC reviewed with pt and verbalized understanding. Bed locked in lowest position. Side rails up x2. Will continue to monitor.
[2020-02-25 09:00] VITALS: BP 89/30
--- NOTE | 2020-02-25 10:38 | NUR ---
SPOKE TO PT REGARDING DC PLAN. STATED THAT HE DID NOT HAVE ACCESS TO HIS HOME YESTERDAY BUT CAN LEAVE TODAY. WILL PROCEED WITH DISCHARGE SINDI.
[2020-02-25] MEDS: ERTAPENEM SOD INJ 1 GM in SODIUM CHL 0.9% 50 ML IV SCH (11:25)
[2020-02-25] MEDS: PANTOPRAZOLE 40 MG TAB PO SCH (11:26)
[2020-02-25] MEDS: rifAXIMin 550 MG TAB PO SCH (11:26)
[2020-02-25] MEDS: MULTIPLE VITAMINS W/ MINERALS TAB PO SCH (11:26)
[2020-02-25] MEDS: FOLIC ACID 1 MG TAB PO SCH (11:27)
[2020-02-25] MEDS: THIAMINE HCL 100 MG TAB PO SCH (11:29)
--- NOTE | 2020-02-25 12:00 | NUR ---
re-assessment Per consult DC planning. Patient to return home with family on discharge. Patient declines hospice and will seek further treatment if needed. Addendum: 02/25/20 at 1601 by Erlinda Carlos Amended: Links added.
--- NOTE | 2020-02-25 14:35 | NUR ---
Discharge instructions given as ordered. Encourage to follow up with PMD as instructed. All questions and concerns addressed. Patient verbalized understanding. Medication reconciliation form completed and copy given to patient. IV and midline removed with catheter intact, pressure dressing applied. Telemetry unit returned to ICU. Patient taken to taxi via wheelchair with all personal belongings, accompanied by staff and family member. No distress noted at time of departure.
--- NOTE | 2020-02-25 14:45 | NUR ---
Nutrition Followup Notes wt: 54.3 kg Pt was sleeping with no family by bedside, currently on 2 gm na diet with adequate PO of 755 x 6 per RN doc Est Energy needs: 5370-7621 kcals (35-40 kcal/kgBW) d/t pt Liver disease, Est Protein needs: 67-80 gms/day (1.0-1.2 gm/kgBW) d/t pt Liver disease. Will continue to monitor and reassess prn. LAB: BUN 77 H, CREAT 2.31 H, CA 8.3 L, ALB 2.9 L. GI: Pt had 1 BM today RN doc. BS: 16 mod risk. Refer to wound assessment report for full details. PES: Altered nutrition related lab values r/t current/chronic medical condition aeb elev RFT, elev Ammonia, mod hypoalbuminemia Comments Will continue to monitor PO status, skin status, pertinent labs and weight trends. Will f/u in 3-5 days. 1) Continue to closely monitor pt PO intake to meet at least 75% of meals 2) Consider a Hepatic 80g,2gNa diet 3) Continue current plan of care Additional Recommendations: Consider a daily MVI with 500mg VitC BID
== END 2020-02-25 14:35 | disposition home or self-care (01) | DRG 720 ==
LOC: ER 13:04 → TELE 13:05 → ICU WEST 02-14 16:45 → CATHLAB 02-22 21:45 → TELE-WESTW 02-23 17:45
PROVIDERS: ADMIT Internal Medicine; ATTEND Internal Medicine
PROC: 0W9G3ZZ Drainage of Peritoneal Cavity, Percutaneous Approach (ICD-10-PCS; 2020-02-13)
PROC: 0W9G3ZZ Drainage of Peritoneal Cavity, Percutaneous Approach (ICD-10-PCS; principal; 2020-02-18)
DX: A41.51 Sepsis due to Escherichia coli [E. coli] (principal); K70.31 Alcoholic cirrhosis of liver with ascites; R65.21 Severe sepsis with septic shock; N17.0 Acute kidney failure with tubular necrosis; K42.9 Umbilical hernia without obstruction or gangrene; D63.8 Anemia in other chronic diseases classified elsewhere; I12.9 Hypertensive chronic kidney disease with stage 1 through stage 4 chronic kidney disease, or unspecified chronic kidney disease; J44.9 Chronic obstructive pulmonary disease, unspecified; K72.90 Hepatic failure, unspecified without coma; N18.3 Chronic kidney disease, stage 3 (moderate); E44.0 Moderate protein-calorie malnutrition; D61.818 Other pancytopenia; D73.1 Hypersplenism; E87.5 Hyperkalemia; R62.7 Adult failure to thrive; Z51.5 Encounter for palliative care; Z79.899 Other long term (current) drug therapy; Z68.23 Body mass index [BMI] 23.0-23.9, adult
CPT/HCPCS: 10022; 36415; 49083; 76700; 76942; 80048; 80053; 81001; 82140; 82570; 82962; 83690; 83735; 83986; 84100; 84156; 84300; 85025; 85610; 85730; 87040; 87077; 87081; 87086; 87186; 87205; 89051; 93306; G0378; J0690; J1335; J1815; J2543; J3490; P9047